=== PATIENT | male | born 1950 | race Caucasian/White ===

== ENCOUNTER 2022-09-06 13:21 | Inpatient (IN) | payer MEDICARE, OTHER, SELFPAY ==
--- NOTE | ~2022-09-06 | XR_ITS ---
EXAMINATION: XR ELBOW, LEFT CLINICAL INFORMATION: Pain left elbow. COMPARISON: None available. TECHNIQUE: Left elbow is imaged in 3 views. FINDINGS: Normal bony mineralization. No acute or healing fracture, dislocation, or arthropathy. No elbow capsular effusion. There is a small oval mineralization adjacent to the medial epicondyle and faint linear mineralization in region of distal triceps. XR/XR elbow LT min 3V IMPRESSION: - No fracture, dislocation, or arthropathy. -Mild calcific tendinosis near medial epicondyle and olecranon.
--- NOTE | ~2022-09-06 | XR_ITS ---
EXAMINATION: XR CHEST CLINICAL INFORMATION: Chest pain COMPARISON: Chest x-ray 03/16/2016 TECHNIQUE: Frontal view of the chest was obtained. FINDINGS: No significant abnormality is noted involving the heart, lungs, mediastinum, bony thorax or soft tissues. XR/XR chest 1V IMPRESSION: Unremarkable chest. No change from 03/16/2016
[2022-09-06 14:26] VITALS: BP 196/107; PULSE 76; RESP 18; TEMP 36.3; O2SAT 99; BMI 27.7
--- NOTE | 2022-09-06 14:26 | ED.GENADULT ---
HPI - General Adult General Chief complaint: General Medical Stated complaint: High Blood Pressure Time Seen by Provider: 09/06/22 15:31 Source: patient Mode of arrival: ambulatory Limitations: no limitations History of Present Illness HPI narrative: patient went to the Urgent Care his blood pressure was 200/120 so they sent him here. Patient states he has had left forearm pain for a few weeks constant with sudden pain with finger numbness. No chest pain or shortness of breath. No history of heart problems. Onset (ago): day(s) Severity: mild Related Data Allergies Allergy/AdvReac Type Severity Reaction Status Date / Time naproxen Allergy Hives Verified 09/06/22 14:26 Review of Systems Review of Systems: Yes all other systems are reviewed and are negative Musculoskeletal: Comments: left arm pain PMFSH Social History Social History (Updated 09/06/22 @ 17:02 by Moisés rBown MD) Alcohol intake: current Alcohol intake frequency: a few times a week Patient Tobacco Use Status: Current everyday Tobacco user Smoked in Last 30 Days: Yes Use of substances other than those prescribed or required for medical reasons: No Advance Directives: No Advance Directives Information Provided: Yes Physical Exam ED Vital Signs: Vital Signs - 24 hr 09/06/22 14:26 09/06/22 15:33 09/06/22 15:37 Temperature 97.4 F 98.5 F Pulse Rate 76 71 130 H Respiratory Rate 18 18 18 Blood Pressure 196/107 H 184/109 H 184/109 H Pulse Oximetry 99 97 99 Oxygen Delivery Method Room Air Room Air Room Air BMI result Body Mass Index 28.2 Const General: healthy appearing Nutritional Appearance: average body habitus Orientation/consciousness: oriented to person and patient oriented x3 Limitations: no limitations HENMT Head: Yes normal to inspection Ears: external ears normal General nose exam: Normal external nose present Mouth: Normal oral and palatal mucosa present and oropharynx normal Throat: Yes posterior oropharynx normal Eyes General: appearance normal, both eyes and all related structures Neck Neck: Yes normal visual inspection Chest Chest palpation & inspection: normal inspection of the chest Resp Other: fine crackles at the bases Cardio Jugular venous distension: no JVD Rate: regular rate Rhythm: regular rhythm Heart sounds: S1 normal heart sound present and S2 normal heart sound present GI Inspection: Yes normal to inspection Palpation (GI): Soft to palpation, nontender and No hepatosplenomegaly present Auscultation: normal bowel sounds General: Yes no CVA tenderness Back/Spine/Pelvis Back: no CVA tenderness Skin General skin exam: no rashes or lesions noted Neuro General: oriented to person and patient oriented x3 Cranial nerves: Yes CN's II-XII intact bilaterally Motor exam (neuro): 5/5 motor strength present throughout Extrem General: Yes normal to inspection Psych Appearance: grossly normal Course Course Course Narrative: RME: 72yo m w/ PMHx HTN (not on medication) sent in from for HTN 200/110 [employer]. Patient went to c/o L elbow pain x 1 mos radiating to L shoulder. denies injury/fall. +assoc L hand/finger numbness. denies PEREZ, neck pain or taking AC. denies CP BP 196/107 in triage. L elbow w/o defomity, nontender, +mild ttp just distal to L elbow. no erythema/warmth. FROM intact EKG, labs, XR ordered Full HPI, ROS and PE to be performed by primary ED provider. Reevaluation(s) Reevaluation #1: patient with NONSTEMI, started on heparin will admit Time: 17:18 Reevaluation #2: I spent 40 minutes of critical care, with interventions, assessments, speaking to patient, consultants, and family. Time: 17:20 Medications Administered Generic Name Dose Route Start Last Admin Trade Name Freq PRN Reason Stop Dose Admin Aspirin 162 mg 09/06/22 15:45 09/06/22 15:48 Aspirin Enteric Coated 81 Mg Tablet.Dr PAGAN 162 mg DAILY SABINO Administration Discontinued Medications Generic Name Dose Route Start Last Admin Trade Name Freq PRN Reason Stop Dose Admin Nitroglycerin 1 inch 09/06/22 15:41 09/06/22 15:48 Nitroglycerin 2 % Oint 1 Gm Packet TRANSDERMA 09/06/22 15:42 1 inch ONCE ONE Administration Medical Decision Making Differential Diagnosis Differential Diagnoses: The differential diagnosis associated with the presentation includes (hypertensive urgency, cardiac ischemia, nonstemi) Admission/Observation Consideration of admission/observation: Escalation of care including admission/observation considered (upon arrival this 72 yo male with BP 200/100 was considered for admission) Consult Healthcare Provider Management of the patient was discussed with: Hospitalist and Tuck Pointer (Dr Torres cardiology) Lab Data 09/06/22 14:37 09/06/22 14:37 Labs: Lab Results 09/06/22 09/06/22 09/06/22 Range/Units 14:37 14:37 14:37 WBC 8.1 (4.8-10.8) X10*3/uL RBC 5.21 (4.60-5.80) X10*6/uL Hgb 16.8 (14.0-18.0) g/dl Hct 51.3 (42.0-52.0) % MCV 98.5 H (80.0-98.0) fL MCH 32.2 (27.0-33.0) pg MCHC 32.7 (31.0-36.0) g/dl RDW 14.1 (11.0-16.0) % Plt Count 199 (160-400) X10*3/uL MPV 11.2 (9.4-12.4) fL Immature Gran % (Auto) 0.2 (0.0-0.4) % Neut % (Auto) 59.0 (45-73) % Lymph % (Auto) 30.4 (20-40) % [place] % (Auto) 8.0 (2-11) % Eos % (Auto) 1.7 (0-4) % Baso % (Auto) 0.7 (0-2) % Lymph # (Auto) 2.5 (1.2-4.9) X10*3/uL [place] # (Auto) 0.7 (0.1-1.2) X10*3/uL Eos # (Auto) 0.1 (0.0-0.4) X10*3/uL Baso # (Auto) 0.1 (0.0-0.2) X10*3/uL Abs Immat Gran (auto) 0.02 (0.00-0.03) X10*3/uL Absolute Neuts (auto) 4.8 (2.0-8.3) x10*3/uL Absolute Nucleated RBC 0.000 (0.0-0.012) X10*3/uL Nucleated RBC % (auto) 0.0 (0.0-0.2) /100WBC PT (10.0-13.1) SEC INR (0.9-1.1) APTT (26.0-36.4) SEC Sodium 143 (135-145) mmol/L Potassium 4.9 (3.3-5.1) mmol/L Chloride 109 H (96-108) mmol/L Carbon Dioxide 26 (22-29) mmol/L Anion Gap 13 (12-20) BUN 9 (9-16) mg/dL Creatinine 0.96 (0.5-1.4) mg/dL Estim Creat Clear Calc 68.2 Estimated GFR > 60 Random Glucose 81 (60-115) mg/dL Calcium 9.5 (8.4-10.2) mg/dL Magnesium 2.0 (1.6-2.6) mg/dL Total Bilirubin 0.6 (0.0-1.0) mg/dL Direct Bilirubin 0.1 (0.0-0.5) mg/dL AST 29 (5-37) U/L ALT 22 (0-40) U/L Alkaline Phosphatase 101 (39-117) U/L Troponin I High Sens 828.8 H* (<3.5-35.0) ng/L Total Protein 7.3 (6.5-8.0) g/dL Albumin 4.2 (3.5-5.0) g/dL 09/06/22 09/06/22 09/06/22 Range/Units 14:37 16:46 16:46 WBC 8.5 (4.8-10.8) X10*3/uL RBC 5.64 (4.60-5.80) X10*6/uL Hgb 18.2 H (14.0-18.0) g/dl Hct 55.1 H (42.0-52.0) % MCV 97.7 (80.0-98.0) fL MCH 32.3 (27.0-33.0) pg MCHC 33.0 (31.0-36.0) g/dl RDW 14.0 (11.0-16.0) % Plt Count 239 (160-400) X10*3/uL MPV 9.9 (9.4-12.4) fL Immature Gran % (Auto) (0.0-0.4) % Neut % (Auto) (45-73) % Lymph % (Auto) (20-40) % [place] % (Auto) (2-11) % Eos % (Auto) (0-4) % Baso % (Auto) (0-2) % Lymph # (Auto) (1.2-4.9) X10*3/uL [place] # (Auto) (0.1-1.2) X10*3/uL Eos # (Auto) (0.0-0.4) X10*3/uL Baso # (Auto) (0.0-0.2) X10*3/uL Abs Immat Gran (auto) (0.00-0.03) X10*3/uL Absolute Neuts (auto) (2.0-8.3) x10*3/uL Absolute Nucleated RBC 0.000 (0.0-0.012) X10*3/uL Nucleated RBC % (auto) 0.0 (0.0-0.2) /100WBC PT 10.2 (10.0-13.1) SEC INR 0.9 (0.9-1.1) APTT 28.9 (26.0-36.4) SEC Sodium (135-145) mmol/L Potassium (3.3-5.1) mmol/L Chloride (96-108) mmol/L Carbon Dioxide (22-29) mmol/L Anion Gap (12-20) BUN (9-16) mg/dL Creatinine (0.5-1.4) mg/dL Estim Creat Clear Calc Estimated GFR Random Glucose (60-115) mg/dL Calcium (8.4-10.2) mg/dL Magnesium (1.6-2.6) mg/dL Total Bilirubin (0.0-1.0) mg/dL Direct Bilirubin (0.0-0.5) mg/dL AST (5-37) U/L ALT (0-40) U/L Alkaline Phosphatase (39-117) U/L Troponin I High Sens 1008.9 H* (<3.5-35.0) ng/L Total Protein (6.5-8.0) g/dL Albumin (3.5-5.0) g/dL Independent Interpretation I performed an independent interpretation of an: EKG (sinus 70, old inferior Qs no st or twave changes) Independent Historian Clinical information obtained from an independent historian. History obtained from or confirmed by: Spouse Discharge Plan Discharge Clinical Impression: NSTEMI (non-ST elevated myocardial infarction), HTN (hypertension), Uncontrolled hypertension Patient Disposition: Admitted As Inpatient
--- NOTE | 2022-09-06 14:28 | ECG_ITS ---
Test Reason : HTN Blood Pressure : / mmHG Vent. Rate : 069 BPM Atrial Rate : 069 BPM P-R Int : 180 ms QRS Dur : 086 ms QT Int : 384 ms P-R-T Axes : 037 -29 017 degrees QTc Int : 411 ms Normal sinus rhythm Possible Anterior infarct , age undetermined Abnormal ECG When compared with ECG of 03-MAY-2016 09:36, No significant change was found Referred By: Winsome Barcenas Electronically Signed By:GALO ROSS MD
[2022-09-06 14:50] LABS: MANUAL DIFF FLAG NO
[2022-09-06 14:53] LABS: Basophils Absolute Auto 0.1 X10*3/uL (0.0-0.2); Basophils Percent Auto 0.7 % (0-2); Eosinophils Absolute Auto 0.1 X10*3/uL (0.0-0.4); Eosinophils Percent Auto 1.7 % (0-4); Hematocrit 51.3 % (42.0-52.0); Hemoglobin 16.8 g/dl (14.0-18.0); Imm Gran Abs Auto 0.02 X10*3/uL (0.00-0.03); Imm Gran Pct Auto 0.2 % (0.0-0.4); Lymphocytes Absolute Auto 2.5 X10*3/uL (1.2-4.9); Lymphocytes Percent Auto 30.4 % (20-40); Mean Corpuscular HGB Conc 32.7 g/dl (31.0-36.0); Mean Corpuscular Hemoglobin 32.2 pg (27.0-33.0); Mean Corpuscular Volume 98.5 fL (80.0-98.0); Mean Platelet Volume 11.2 fL (9.4-12.4); Monocytes Absolute Auto 0.7 X10*3/uL (0.1-1.2); Neutrophils Absolute Auto 4.8 x10*3/uL (2.0-8.3); Platelet Count 199 X10*3/uL (160-400); Red Blood Count 5.21 X10*6/uL (4.60-5.80); Red Cell Distribution Width 14.1 % (11.0-16.0); White Blood Count 8.1 X10*3/uL (4.8-10.8)
[2022-09-06 15:05] LABS: Alanine Aminotransferase 22 U/L (0-40); Albumin Level 4.2 g/dL (3.5-5.0); Alkaline Phosphatase 101 U/L (39-117); Anion Gap 13 (12-20); Aspartate Amino Transferase 29 U/L (5-37); Bilirubin Direct 0.1 mg/dL (0.0-0.5); Bilirubin Total 0.6 mg/dL (0.0-1.0); Blood Urea Nitrogen 9 mg/dL (9-16); Calcium 9.5 mg/dL (8.4-10.2); Carbon Dioxide 26 mmol/L (22-29); Chloride 109 mmol/L (96-108); Creatinine Clr Calc Pharmacy 68.2; Estimated Glomerular Filt Rate > 60; Glucose Random 81 mg/dL (60-115); Potassium 4.9 mmol/L (3.3-5.1); Sodium 143 mmol/L (135-145); Total Protein 7.3 g/dL (6.5-8.0)
[2022-09-06 15:10] LABS: INTERNATIONAL NORM RATIO 0.9 (0.9-1.1); Prothrombin Time 10.2 SEC (10.0-13.1)
[2022-09-06 15:22] LABS: Troponin-I High Sensitivity 828.8 ng/L (<3.5-35.0)
[2022-09-06 15:33] VITALS: BP 184/109; PULSE 71; RESP 18; TEMP 36.9; O2SAT 97
[2022-09-06 15:37] VITALS: BP 184/109; PULSE 130; RESP 18; O2SAT 99
--- NOTE | 2022-09-06 15:41 | PC.NURSE ---
Alert and oriented. Arrived from home accompanied by .Was at urgent care earlier and was told he was having a hypertensive emergency. States that for about a month he has had left lower arm pain that extends up his arm. Denies sob or chest pain . No dizziness or lightheadedness. No edema to bilat lower extremities. NSR on monitor. EKG reviewed by provider. BP elevated provider aware.
[2022-09-06] MEDS: Aspirin Enteric Coated 81 MG TABLET.DR 162 MG PO (15:48)
[2022-09-06] MEDS: Nitroglycerin 2 % Oint 1 GM Packet 1 INCH TRANSDERMA (15:48)
[2022-09-06 16:19] LABS: Partial Thromboplastin Time 28.9 SEC (26.0-36.4)
--- NOTE | 2022-09-06 16:30 | PC.NURSE ---
weight 79.2kg
--- NOTE | 2022-09-06 16:40 | PC.NURSE ---
Heparin gtt pending initial PTT result
--- NOTE | 2022-09-06 16:48 | PM.IMHP ---
History of Present Illness Date of Service: 09/06/22 Attending physician on admission: Moisés Brown Chief Complaint: left forearm pain, uncontrolled hypertension, elevated troponin 72-year-old male with history of possible hypertension( does not have PCP, and does not go to any doctor for 5 years)-went to the urgent care today because of left forearm pain, sharp pain, 7/10 intensity, does not radiates. Found to have elevated blood pressure in the urgent care, subsequently sent to the hospital for further evaluation. Patient was found to have elevated troponin and blood pressure of 210/110 mmhg. Denies any new complaint of chest pain or shortness of breath or abdominal pain or fever or chills or nausea or vomiting or coughor weakness or numbness. Lab imaging reviewed: Patient was found to have a troponin of 828, EKG seems NSR no significant ST changes. XR elbow LT min 3V IMPRESSION: - No fracture, dislocation, or arthropathy. -Mild calcific tendinosis near medial epicondyle and olecranon. cxr -pending Ed discussed the case with cardiology: Started on aspirin, heparin drip, nitroglycerins . blood presure still 180/109 range In addition we added Coreg for blood pressure Review of Systems Review of Systems: As above. [facility] Pertinent family history: mother from intracranial hemorrhage Father had emphysema Social History (Updated 09/06/22 @ 17:02 by Moisés Brown MD) Alcohol intake: current Alcohol intake frequency: a few times a week Patient Tobacco Use Status: Current everyday Tobacco user Meds Allergies Allergy/AdvReac Type Severity Reaction Status Date / Time naproxen Allergy Hives Verified 09/06/22 14:26 Active Medications: Current Medications Aspirin (Aspirin Enteric Coated 81 Mg Tablet.Dr) 162 mg PO DAILY PENDING SALE TO [facility] Last Admin: 09/06/22 15:48 Dose: 162 mg Folic Acid (Folic Acid 1 Mg Tablet) 1 mg PO DAILY PENDING SALE TO [facility] Heparin Sodium (Porcine) (Heparin Sodium,Porcine 5,000 Unit/Ml Vial) 3,100 unit 40 unit/kg (3100 unit) IVPUSH PROTOCOL BOLUS PRN; Protocol PRN Reason: 40 unit/kg - Heparin Protocol Heparin Sodium (Porcine) (Heparin Sodium,Porcine 5,000 Unit/Ml Vial) 6,200 unit 80 unit/kg (6200 unit) IVPUSH PROTOCOL BOLUS PRN; Protocol PRN Reason: 80 unit/kg - Heparin Protocol Heparin Sodium/Sodium Chloride (Heparin Sodium,Porcine/1/2ns) 25,000 unit in 250 mls @ 0 mls/hr IVCONT .Q0M SABINO; Protocol Sodium Chloride (0.9 % Sodium Chloride Flush 3 Ml Syringe) 3 ml IVFLUSH QSHIFT SABINO Thiamine HCl (Thiamine Hcl 100 Mg Tablet) 100 mg PO DAILY SABINO Physical Exam Vital Signs and Narrative: Vital Signs: Last Vital Signs Temp 98.5 F 09/06/22 15:33 Pulse 130 H 09/06/22 15:37 Resp 18 09/06/22 15:37 BP 184/109 H 09/06/22 15:37 Pulse Ox 99 09/06/22 15:37 O2 Del Method Room Air 09/06/22 15:37 BMI result Body Mass Index 27.7 Appearance: Alert.? Oriented X3.? not in distress.? Eyes: Pupils equal, round and reactive to light.? Sclera nonicteric.? ENT: Pharynx normal.? Moist mucous membranes. cvs: rrr, p2i0upndg , no murmur res: clear to auscultation ,no rhonchii or wheezing abd: no rebound or guarding ,nt, bs present. ext pulses present , no cyanosis. neuro: axo3 , nonfocal. Results Labs 09/06/22 14:37 09/06/22 14:37 Labs: Laboratory Results - last 24 hr 09/06/22 09/06/22 09/06/22 14:37 14:37 14:37 MCV 98.5 H MCH 32.2 MCHC 32.7 RDW 14.1 Plt Count 199 MPV 11.2 Immature Gran % (Auto) 0.2 Neut % (Auto) 59.0 Lymph % (Auto) 30.4 [place] % (Auto) 8.0 Eos % (Auto) 1.7 Baso % (Auto) 0.7 Lymph # (Auto) 2.5 [place] # (Auto) 0.7 Eos # (Auto) 0.1 Baso # (Auto) 0.1 Abs Immat Gran (auto) 0.02 Absolute Neuts (auto) 4.8 Absolute Nucleated RBC 0.000 Nucleated RBC % (auto) 0.0 PT INR Anion Gap 13 Estim Creat Clear Calc 68.2 Estimated GFR > 60 Random Glucose 81 Calcium 9.5 Magnesium 2.0 Total Bilirubin 0.6 Direct Bilirubin 0.1 AST 29 ALT 22 Alkaline Phosphatase 101 Troponin I High Sens 828.8 H* Total Protein 7.3 Albumin 4.2 09/06/22 14:37 MCV MCH MCHC RDW Plt Count MPV Immature Gran % (Auto) Neut % (Auto) Lymph % (Auto) [place] % (Auto) Eos % (Auto) Baso % (Auto) Lymph # (Auto) [place] # (Auto) Eos # (Auto) Baso # (Auto) Abs Immat Gran (auto) Absolute Neuts (auto) Absolute Nucleated RBC Nucleated RBC % (auto) PT 10.2 INR 0.9 Anion Gap Estim Creat Clear Calc Estimated GFR Random Glucose Calcium Magnesium Total Bilirubin Direct Bilirubin AST ALT Alkaline Phosphatase Troponin I High Sens Total Protein Albumin ECG Attestation: I personally reviewed and interpreted this ECG as follows: (nsr ,does not seems significant st changes) Imaging Radiologist's Impressions: Impressions Elbow X-Ray 09/06/22 15:00 IMPRESSION: - No fracture, dislocation, or arthropathy. -Mild calcific tendinosis near medial epicondyle and olecranon. Assessment and Plan (1) NSTEMI (non-ST elevated myocardial infarction): Status: Acute (2) Uncontrolled hypertension: Status: Acute (3) Alcohol use: Status: Acute (4) Smoker: Status: Acute (5) Left forearm pain: Status: Acute Plan 72-year-old male with history of hypertension came with arm pain. 1. nstemi: First troponin 800 range, 2nd troponin pending Lipid panel in the morning Echo Started on aspirin, heparin drip, moniter pt/ptt protocol, beta-danny, high-dose statin, nitro patch. Better blood pressure control. Cardio evaluation. 2. Uncontrolled hypertension: Added Coreg, also ED added nitro. 3. Alcohol use: CIWA scale, thiamine folic acid Currently not in withdrawal Addiction consult 4. Current cigar smoker: Added nicotine patch 5. left forearm pain: From 3 weeks, seems more muscular cutaneous type. Added lidocaine patch, Tylenol. DVT prophylaxis: Currently on heparin drip Patient will benefit from 2 midnight stays-considering has NSTEMI may need heparin drip as well as better blood pressure control and cardiac workup for NSTEMI. Time Spent With Patient Time: Total time managing care of this patient today ____ minutes. Quality Stroke Does the patient have a stroke diagnosis?: No VTE Prior VTE?: No VTE Risk Level:: Medical - moderate - high VTE Device Contraindication: N/A - Device Ordered VTE Drug Contraindication: N/A - Med Ordered
[2022-09-06 16:56] LABS: Hemoglobin 18.2 g/dl (14.0-18.0); Mean Corpuscular Hemoglobin 32.3 pg (27.0-33.0); Mean Corpuscular Volume 97.7 fL (80.0-98.0); Mean Platelet Volume 9.9 fL (9.4-12.4); Platelet Count 239 X10*3/uL (160-400); Red Blood Count 5.64 X10*6/uL (4.60-5.80); White Blood Count 8.5 X10*3/uL (4.8-10.8)
[2022-09-06 17:06] LABS: Hematocrit 55.1 % (42.0-52.0)
[2022-09-06 17:13] VITALS: BMI 28.2
[2022-09-06] MEDS: Thiamine HCL 100 MG TABLET PO (17:14)
[2022-09-06] MEDS: Folic Acid 1 MG TABLET PO (17:14)
[2022-09-06] MEDS: carvediloL 12.5 MG TABLET PO ×2 (17:15→20:41)
[2022-09-06] MEDS: Acetaminophen 325 MG TABLET 975 MG PO (17:15)
[2022-09-06 17:16] LABS: Troponin-I High Sensitivity 1008.9 ng/L (<3.5-35.0)
[2022-09-06] MEDS: Lidocaine 4 % Patch ADH..PATCH 1 PATCH TRANSDERMA (17:16)
[2022-09-06] MEDS: 0.9 % Sodium Chloride Flush 3 ML SYRINGE IVFLUSH (17:17)
[2022-09-06] MEDS: Labetalol HCL 100 MG/20 ML VIAL 10 MG IVPUSH (17:28)
[2022-09-06] MEDS: Heparin Sodium,Porcine 5,000 UNIT/ML VIAL 4000 UNIT IVPUSH (17:29)
[2022-09-06] MEDS: Heparin Sodium,Porcine/1/2NS 25,000 UNIT/250 ML IV.SOLN 9.5 UNIT IVCONT (17:36)
--- NOTE | 2022-09-06 18:16 | PHA.MEDREC ---
Pharmacy Consult ? Medication Reconciliation Pharmacy has completed the medication reconciliation.
--- NOTE | 2022-09-06 18:17 | PC.NURSE ---
Report given to accepting unit RN, patient and aware of transsfer
[2022-09-06 18:33] VITALS: BP 136/90; PULSE 89; RESP 18; O2SAT 98
[2022-09-06 19:42] VITALS: BP 131/77; PULSE 71; RESP 20; TEMP 36.9; O2SAT 97
[2022-09-06] MEDS: Atorvastatin Calcium 80 MG TABLET PO (20:41)
--- NOTE | 2022-09-06 23:34 | PC.NURSE ---
Assumed care for patient at 1900, transferred from ED to [facility] at approx 1840. A&Ox3, agitated at times regarding continued questions regarding history/ETOH use, but otherwise pleasant. CIWA scores as ordered. On Heparin gtt as ordered per MAY. Denies chest pain/tightness. Ambulating in room independently without difficulty, steady on feet. NSR with 1st degree HB on human services care specialist. Bed in lowest locked position. Call thornton within reach.
[2022-09-06 23:59] VITALS: BP 133/70; PULSE 60; RESP 20; TEMP 36.6; O2SAT 93
--- NOTE | 2022-09-07 | ECG_ITS ---
Test Reason : nstemi Blood Pressure : / mmHG Vent. Rate : 063 BPM Atrial Rate : 063 BPM P-R Int : 188 ms QRS Dur : 090 ms QT Int : 422 ms P-R-T Axes : 003 000 014 degrees QTc Int : 431 ms Normal sinus rhythm Cannot rule out Inferior infarct , age undetermined Abnormal ECG When compared with ECG of 06-SEP-2022 14:36, No significant change was found Referred By: Moisés Brown Electronically Signed By:GALO ROSS MD
[2022-09-07 00:10] LABS: PTT Heparin Drip 66.6 SEC (53-77.9)
[2022-09-07] MEDS: traMADoL HCL 50 MG TABLET PO (00:28)
[2022-09-07 04:00] VITALS: BP 131/64; PULSE 59; RESP 20; TEMP 36.4; O2SAT 95
[2022-09-07 06:47] LABS: Hemoglobin 14.8 g/dl (14.0-18.0); Mean Corpuscular HGB Conc 32.9 g/dl (31.0-36.0); Mean Corpuscular Hemoglobin 32.5 pg (27.0-33.0); Mean Corpuscular Volume 98.7 fL (80.0-98.0); Mean Platelet Volume 10.5 fL (9.4-12.4); Platelet Count 194 X10*3/uL (160-400); Red Blood Count 4.56 X10*6/uL (4.60-5.80); Red Cell Distribution Width 13.9 % (11.0-16.0); White Blood Count 7.5 X10*3/uL (4.8-10.8)
[2022-09-07 06:52] LABS: Prothrombin Time 11.4 SEC (10.0-13.1)
[2022-09-07 06:54] LABS: PTT Heparin Drip 65.5 SEC (53-77.9)
--- NOTE | 2022-09-07 07:00 | CA_ITS ---
Transthoracic Echocardiogram Patient (Last, First, Middle): Julián AvilaAndrez Gender: Male Date of : 1950 Age: 72 Procedure Date: 09/07/2022 Procedure Type: Transthoracic Echocardiogram Location: [facility] [place] Height: 167.64 cm Weight: 78.93 kg BSA: 1.89 m2 Heart Rate: bpm BP: 131 / 64 mmHg [employer]ing Supervisor: ARCENIO Francis MD: Moisés Brown MD Circus Supervisor: Baljinder Torres MD Symptoms: nstemi Study Quality: Adequate ECG Rhythm: Sinus Conclusions: - 1. Normal LV systolic function with mild LVH with impaired relaxation filling pattern 2. Normal cardiac valvular Dopplers 3. Normal RV systolic pressure 4. Mildly dilated ascending aorta at 3.7 cm 5. No gross pericardial effusion Findings Left Ventricle Normal left ventricular size and systolic function. There is mildly increased left ventricular wall thickness. The visually estimated ejection fraction is between 55-60%. Spectral Doppler is indicative of an impaired relaxation filling pattern. E/E prime ratio is between 8 and 15 consistent with indeterminate filling pressures. Peak GLS is -14.2%, which is reduced. Right Ventricle Normal right ventricular cavity size and systolic function. Atria The left atrium is normal in size. Interatrial shunt cannot be excluded. The right atrium is normal in size. Aortic Valve There is mild calcification of the aortic valve. There is no aortic valve stenosis. There is no aortic valve regurgitation. Mitral Valve There is mild anterior and posterior mitral leaflet thickening. There is trace mitral valve regurgitation. There is no mitral valve stenosis. Pulmonic Valve The pulmonic valve is likely normal. Tricuspid Valve Normal tricuspid valve structure. There is trace tricuspid valve regurgitation. The right ventricular systolic pressure is normal. The right ventricular systolic pressure is 13 mmHg. Normal right atrial pressure. There is no evidence of pulmonary hypertension. Great Vessels The pulmonary artery was not well visualized. There is mild dilatation of the ascending aorta measuring 3.70 cm. Venous The inferior vena cava is normal in size and collapses greater than 50% with inspiration. Pericardium/Pleural There is no evidence of pericardial effusion. Prior Study Comparison No prior study available for comparison. Measurements 2D Linear Measurements IVSd: 1.05 0.6-0.9/0.6-1.0 cm LVIDd: 4.47 3.9-5.3/4.2-5.9 cm LVIDd Index: 2.37 2.4-3.2/2.2-3.1 cm/m2 LVIDs: 2.67 2.0-3.6 cm LVPWd: 1.27 0.7-1.1 cm LA Diam: 3.30 2.7-3.8/3.0-4.0 cm LAIDs Index: 1.75 1.5-2.3 cm/m2 LV Mass: 232.68 67-162/88-224 g LV Mass Index: 123.11 43-95/49-115 g/m2 LVOT Diam: 2.10 3.0+(-)1.3 cm 2D Systolic Function EF 4C: 52.70 >55% EF 2C: 59.40 >55% EF BiP: 56.80 >55% Mitral Valve MV Pk E: 0.86 MV PK A: 0.99 MV Decel Time: 208.00 E/A: 0.90 E'Lateral: 7.94 E'Medial: 8.81 E/E' Med: 9.70 E/E' Lat: 10.80 PHT: 61.00 MVA PHT: 3.61 Decel [place]: 4.12 Aortic Valve AoV Pk Joe: 1.21 AoV Mn Joe: 0.87 AoV VTI: 0.29 AoV Pk Grad: 6.00 Aov Mn Grad: 3.00 FAHAD Cont.VTI: 2.83 LVOT LVOT Pk Joe: 1.08 LVOT Mn Joe: 0.72 LVOT VTI: 0.24 LVOT Pk Grad: 5.00 LVOT Mn Grad: 2.00 LVOT Diam: 2.10 LVOT Area: 3.46 Diastolic Function MV Pk E: 0.86 MV Pk A: 0.99 E/A: 0.90 E'Medial: 8.81 E/E' Med: 9.70 E' Laterial: 7.94 E/E' Lat: 10.80 Right Ventricle TAPSE (mm): 28.00 TVS' Joe: 11.20 Tricuspid Valve TR Pk Joe: 1.62 TR Pk Grad: 10.00 RA Press: 3.00 RVSP: 13.00 Great Vessels Aorta Sinus of Valsalva: 4.00 2.0-3.5 cm Ao Asc: 3.70 2.1-3.4 cm Pulmonary Valve PV Pk Joe: 0.76 Peak PV Grad: 2.00 Updated in Other Vendor System with Status of Final Baljinder Torres MD electronically signed on 09/07/2022 2:40:03 PM with status of Final
[2022-09-07 07:31] LABS: Cholesterol 191 mg/dL; HDL Cholesterol 31 mg/dL; LDL Cholesterol Calculated 135 mg/dl; Triglycerides 125 mg/dL
[2022-09-07 07:32] VITALS: BP 157/84; PULSE 60; RESP 18; TEMP 36.1; O2SAT 98
[2022-09-07] MEDS: Folic Acid 1 MG TABLET PO (08:23)
[2022-09-07] MEDS: Thiamine HCL 100 MG TABLET PO (08:28)
[2022-09-07] MEDS: Omeprazole 20 MG CAPSULE.DR PO (08:31)
[2022-09-07] MEDS: carvediloL 12.5 MG TABLET PO (08:31)
[2022-09-07] MEDS: Aspirin Enteric Coated 81 MG TABLET.DR PO (08:31)
[2022-09-07] MEDS: Multivitamin TABLET 1 TAB PO (08:31)
[2022-09-07] MEDS: Acetaminophen 325 MG TABLET 975 MG PO (08:46)
[2022-09-07] MEDS: Lidocaine 4 % Patch ADH..PATCH 1 PATCH TRANSDERMA (08:47)
[2022-09-07] MEDS: 0.9 % Sodium Chloride Flush 3 ML SYRINGE IVFLUSH (08:48)
[2022-09-07] MEDS: traMADoL HCL 50 MG TABLET 25 MG PO (08:49)
--- NOTE | 2022-09-07 09:03 | MHC.CM.PN ---
CM met with Patient at bedside and addressed IMM with him, providing Patient with the original and placing a copy on the chart. 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 Home/self care is the goal and CM has initiated and will follow for dc planning. Patient has no PCP; CM has provided Patient with a brochure of close by PCP's contact information. Patient is not covid vax'd.
--- NOTE | 2022-09-07 09:36 | P.CONCA_ITS ---
History of Present Illness History of Present Illness Date of Service: 09/07/22 Requesting physician: Moisés Brown Consult reason: other (NSTEMI) Chief complaint: nstemi, uncontrolled htn Narrative: I was consulted to see Julián in cardiology consultation today for elevated troponins and significantly elevated blood pressure. Julián is a 72-year-old healthy turcios who exercises and plays golf on a regular basis has a history of borderline hypertension for many years but has not seen a primary care physician for last 5 years. Recently said he has had increased stress he came to the hospital because of 2-3 week history of left arm discomfort. He describes this left arm discomfort as present most of the time to a minor degree but then it is significantly spikes and then the pain then subsides. He came to the emergency room was noted to have markedly elevated blood pressure with systolic blood pressure over 196 and diastolic blood pressure of 107. He was therefore admitted and treated for the same. However initial troponin was elevated 800. Subsequent troponin at 1000. He has EKG did not show any acute ST T wave changes. His blood pressure is better control his left arm pain has dissipated but I think this is musculoskeletal as he was also given a patch on his left arm. Patient has never any chest pain. Denies any lightheadedness, syncope, neurologic symptoms. Denies any orthopnea, PND, leg edema. Bedside echocardiogram, preliminary is suggestive normal LV systolic function without significant LVH. Review of Systems Constitutional: Constitutional: Reports no additional constitutional complaints Eyes: Eyes: Reports no additional eye complaints Cardiovascular: Cardiovascular: Denies chest pain, Denies lightheadedness, Denies Loss of Consciousness, Denies dyspnea and Reports other ( Left arm discomfort) Respiratory: Respiratory: Reports no additional respiratory complaints and Denies dyspnea Gastrointestinal: Gastrointestinal: Reports no additional gastrointestinal complaints Musculoskeletal: Musculoskeletal: Reports no additional musculoskeletal complaints Integumentary/Breasts: Skin/Breast: Reports system reviewed and no additional complaints, except as docu Neurologic: Reports system reviewed and no additional complaints, except as documented Psychiatric: Psychiatric: Reports no additional psychiatric complaints Endocrine: Endocrine: Reports no additional endocrine complaints Hematologic/Lymphatic: Hematologic/Lymphatic: Reports no additional hematologic/lymphatic complaints Allergic/Immunologic: Allergic/Immunologic: Reports no additional allergic/immunologic complaints PMFSH Social History Social History Household Members: Spouse Housing: House Do you presently have visiting nurse or other home services: No Alcohol intake: current Alcohol intake frequency: a few times a week Patient Tobacco Use Status: Current someday Tobacco user Tobacco use type: Cigar e-Cigarette/Vaping Use: Currently Using service: No Current occupational status: employed Meds Allergies Allergy/AdvReac Type Severity Reaction Status Date / Time naproxen Allergy Hives Verified 09/06/22 14:26 Active Medications: Current Medications Acetaminophen (Acetaminophen 325 Mg Tablet) 975 mg PO TID [facility] Last Admin: 09/07/22 08:46 Dose: 975 mg Aspirin (Aspirin Enteric Coated 81 Mg Tablet.Dr) 81 mg PO DAILY [facility] Last Admin: 09/07/22 08:31 Dose: 81 mg Atorvastatin Calcium (Atorvastatin Calcium 80 Mg Tablet) 80 mg PO BEDTIME SABINO Last Admin: 09/06/22 20:41 Dose: 80 mg Carvedilol (Carvedilol 12.5 Mg Tablet) 12.5 mg PO BID [facility]; Protocol Last Admin: 09/07/22 08:31 Dose: 12.5 mg Folic Acid (Folic Acid 1 Mg Tablet) 1 mg PO DAILY [facility] Last Admin: 09/07/22 08:23 Dose: 1 mg Heparin Sodium (Porcine) (Heparin Sodium,Porcine 5,000 Unit/Ml Vial) 3,200 unit 40 unit/kg (3200 unit) IVPUSH PROTOCOL BOLUS PRN; Protocol PRN Reason: 40 unit/kg - Heparin Protocol Heparin Sodium (Porcine) (Heparin Sodium,Porcine 5,000 Unit/Ml Vial) 6,300 unit 80 unit/kg (6300 unit) IVPUSH PROTOCOL BOLUS PRN; Protocol PRN Reason: 80 unit/kg - Heparin Protocol Heparin Sodium/Sodium Chloride (Heparin Sodium,Porcine/1/2ns) 25,000 unit in 250 mls @ 0 mls/hr IVCONT .Q0M [facility]; Protocol Last Titration: 09/07/22 07:31 Dose: 12 units/kg/hr, 9.5 mls/hr Lidocaine (Lidocaine 4 % Patch Adh..Patch) 1 patch TRANSDERMA DAILY [facility]; Protocol Last Admin: 09/07/22 08:47 Dose: 1 patch Multivitamins/Vitamin C (Multivitamin Tablet) 1 tab PO DAILY [facility] Last Admin: 09/07/22 08:31 Dose: 1 tab Nicotine (Nicotine 21 Mg Patch.Td24) 21 mg TRANSDERMA DAILY [facility] Last Admin: 09/07/22 08:55 Dose: Not Given Omeprazole (Omeprazole 20 Mg Capsule.Dr) 20 mg PO DAILY@0630 [facility] Last Admin: 09/07/22 08:31 Dose: 20 mg Sodium Chloride (0.9 % Sodium Chloride Flush 3 Ml Syringe) 3 ml IVFLUSH QSHIFT [facility] Last Admin: 09/07/22 08:48 Dose: 3 ml Thiamine HCl (Thiamine Hcl 100 Mg Tablet) 100 mg PO DAILY [facility] Last Admin: 09/07/22 08:28 Dose: 100 mg Tramadol HCl (Tramadol Hcl 50 Mg Tablet) 25 mg PO Q4H PRN PRN Reason: Pain, Mild (Pain Scale 1-3) Last Admin: 09/07/22 08:49 Dose: 25 mg Home Medications Medication Instructions Recorded Confirmed Last Taken Type multivitamin 1 tab PO DAILY 09/06/22 09/06/22 09/06/22 History Physical Exam Vital Signs: Vital Signs: Last Vital Signs Temp 97.0 F 09/07/22 07:32 Pulse 60 09/07/22 07:32 Resp 18 09/07/22 07:32 BP 157/84 H 09/07/22 07:32 Pulse Ox 98 09/07/22 07:32 O2 Del Method Room Air 09/07/22 07:32 BMI result Body Mass Index 28.2 Const: General: cooperative, comfortable, no acute distress, alert, awake and Physically active Nutritional Appearance: average body habitus Orientation/consciousness: patient oriented x3 HEENT: Head: Yes normocephalic and Yes atraumatic Neck: Neck: Yes trachea midline, Yes supple and Yes no JVD Resp: Effort & Inspection: normal respiratory effort Auscultation: clear to auscultation bilaterally Cardio: Jugular venous distension: no JVD Palpation: normal PMI Rate: regular rate Rhythm: regular rhythm Heart sounds: S1 normal heart sound present, S2 normal heart sound present, no click, no gallops, no murmurs and no rubs GI: Auscultation: normal bowel sounds Skin: General skin exam: no rashes or lesions noted Neuro: General: patient oriented x3 and no focal motor deficits Extrem: General: Yes no clubbing, cyanosis or edema Objective Labs and Meds 09/07/22 06:01 09/06/22 14:37 Lab results: Laboratory Results - last 24 hr 09/06/22 09/06/22 09/06/22 14:37 14:37 14:37 WBC 8.1 RBC 5.21 Hgb 16.8 Hct 51.3 MCV 98.5 H MCH 32.2 MCHC 32.7 RDW 14.1 Plt Count 199 MPV 11.2 Immature Gran % (Auto) 0.2 Neut % (Auto) 59.0 Lymph % (Auto) 30.4 [place] % (Auto) 8.0 Eos % (Auto) 1.7 Baso % (Auto) 0.7 Lymph # (Auto) 2.5 [place] # (Auto) 0.7 Eos # (Auto) 0.1 Baso # (Auto) 0.1 Abs Immat Gran (auto) 0.02 Absolute Neuts (auto) 4.8 Absolute Nucleated RBC 0.000 Nucleated RBC % (auto) 0.0 PT INR APTT aPTT Heparin Protocol Sodium 143 Potassium 4.9 Chloride 109 H Carbon Dioxide 26 Anion Gap 13 BUN 9 Creatinine 0.96 Estim Creat Clear Calc 68.2 Estimated GFR > 60 Random Glucose 81 Calcium 9.5 Magnesium 2.0 Total Bilirubin 0.6 Direct Bilirubin 0.1 AST 29 ALT 22 Alkaline Phosphatase 101 Troponin I High Sens 828.8 H* Total Protein 7.3 Albumin 4.2 Triglycerides Cholesterol LDL Cholesterol, Calc HDL Cholesterol 09/06/22 09/06/22 09/06/22 14:37 16:46 16:46 WBC 8.5 RBC 5.64 Hgb 18.2 H Hct 55.1 H MCV 97.7 MCH 32.3 MCHC 33.0 RDW 14.0 Plt Count 239 MPV 9.9 Immature Gran % (Auto) Neut % (Auto) Lymph % (Auto) [place] % (Auto) Eos % (Auto) Baso % (Auto) Lymph # (Auto) [place] # (Auto) Eos # (Auto) Baso # (Auto) Abs Immat Gran (auto) Absolute Neuts (auto) Absolute Nucleated RBC 0.000 Nucleated RBC % (auto) 0.0 PT 10.2 INR 0.9 APTT 28.9 aPTT Heparin Protocol Sodium Potassium Chloride Carbon Dioxide Anion Gap BUN Creatinine Estim Creat Clear Calc Estimated GFR Random Glucose Calcium Magnesium Total Bilirubin Direct Bilirubin AST ALT Alkaline Phosphatase Troponin I High Sens 1008.9 H* Total Protein Albumin Triglycerides Cholesterol LDL Cholesterol, Calc HDL Cholesterol 09/06/22 09/07/22 09/07/22 23:39 06:01 06:01 WBC 7.5 RBC 4.56 L Hgb 14.8 Hct 45.0 MCV 98.7 H MCH 32.5 MCHC 32.9 RDW 13.9 Plt Count 194 MPV 10.5 Immature Gran % (Auto) Neut % (Auto) Lymph % (Auto) [place] % (Auto) Eos % (Auto) Baso % (Auto) Lymph # (Auto) [place] # (Auto) Eos # (Auto) Baso # (Auto) Abs Immat Gran (auto) Absolute Neuts (auto) Absolute Nucleated RBC 0.000 Nucleated RBC % (auto) 0.0 PT INR APTT aPTT Heparin Protocol 66.6 Sodium Potassium Chloride Carbon Dioxide Anion Gap BUN Creatinine Estim Creat Clear Calc Estimated GFR Random Glucose Calcium Magnesium Total Bilirubin Direct Bilirubin AST ALT Alkaline Phosphatase Troponin I High Sens Total Protein Albumin Triglycerides 125 Cholesterol 191 LDL Cholesterol, Calc 135 HDL Cholesterol 31 09/07/22 09/07/22 06:01 06:01 WBC RBC Hgb Hct MCV MCH MCHC RDW Plt Count MPV Immature Gran % (Auto) Neut % (Auto) Lymph % (Auto) [place] % (Auto) Eos % (Auto) Baso % (Auto) Lymph # (Auto) [place] # (Auto) Eos # (Auto) Baso # (Auto) Abs Immat Gran (auto) Absolute Neuts (auto) Absolute Nucleated RBC Nucleated RBC % (auto) PT 11.4 INR 1.0 APTT aPTT Heparin Protocol 65.5 Sodium Potassium Chloride Carbon Dioxide Anion Gap BUN Creatinine Estim Creat Clear Calc Estimated GFR Random Glucose Calcium Magnesium Total Bilirubin Direct Bilirubin AST ALT Alkaline Phosphatase Troponin I High Sens Total Protein Albumin Triglycerides Cholesterol LDL Cholesterol, Calc HDL Cholesterol EKG shows normal sinus rhythm with poor R-wave progression without acute ST T wave changes. Imaging Radiologist's impression: Impressions Elbow X-Ray 09/06/22 15:00 IMPRESSION: - No fracture, dislocation, or arthropathy. -Mild calcific tendinosis near medial epicondyle and olecranon. Chest X-Ray 09/06/22 16:10 IMPRESSION: Unremarkable chest. No change from 03/16/2016 Assessment and Plan (1) NSTEMI (non-ST elevated myocardial infarction): Status: Acute Patient present with left arm discomfort uncontrolled blood pressure with elevated troponin suggestive myocardial injury. it is possible that this troponin elevation is related to acute hypertension although it is unusual. He has bedside echocardiogram does not show any major regional wall motion abnormality. He is also possible that he has significant obstructive coronary artery disease. I think the best option is to proceed with cardiac catheterization to evaluate coronary anatomy and guide treatment. In the long run he does require more aggressive blood pressure control. For now continue IV heparin, aspirin and would start him on high-intensity statin therapy. Continue nitropaste as well. Continue carvedilol. (2) Uncontrolled hypertension: Status: Acute Uncontrolled hypertension which needs to be treated. Importance of compliance with follow-up was discussed. He said he understands agrees. Low- salt diet. Stress mitigation strategies needs to be pursued. Continue carvedilol and nitropaste. Will eventually need need to target goal blood pressure less than 130/84. Advised to seek care with a primary care physician. Will follow up in the clinic in 2 weeks time, sooner p.r.n.. Thank you for allowing me to partake in his care Time Spent With Patient Time: Total time managing care of this patient today ____ minutes. Procedures Date of Service Date of Service: 09/07/22
--- NOTE | 2022-09-07 09:36 | P.CDIM_ITS ---
PROVIDER RESPONSE TEXT: To clarify, the appropriate diagnosis supported by the clinical indicators: Other (explain): Nstemi QUERY TEXT: PHYSICIAN'S DOCUMENTATION REQUEST Date of Query: 09/07/2022 08:11 AM EDT Patient Name: Julián Avila Admit Date: 09/06/2022 Dear Moisés Brown, A review of the medical record indicates additional documentation may be needed. Please review below and update the documentation accordingly. Presented to ED with left forearm pain EKG seems NSR no significant ST changes as per H&P 09/06/22 Clinical Indicators: Troponin: 828.8, 1008.9 Started on aspirin, heparin drip, monitor pt/ptt protocol, beta-danny, high-dose statin, nitro patc h Cardiology evaluation pending Please clarify the type of the documented myocardial infarction: NSTEMI due to demand ischemia NSTEMI Type 2 Other (explain)Clinically unable to determine (explain)Thank you, Shannon Layne RN Use of terms such as suspected, likely, concern for, or probable (associated with a specific diagnosi s that is being evaluated, monitored, or treated as if it exists) are acceptable and can be coded in the inpatient se tting, when documented at the time of discharge. Please use your independent medical judgment in providing your response. THIS QUERY IS PART OF THE PERMANENT MEDICAL RECORD
--- NOTE | 2022-09-07 09:40 | MHC.CM.PN ---
Patient has been medically cleared for dc to home today, self care.
[2022-09-07 09:43] LABS: Troponin-I High Sensitivity 511.5 ng/L (<3.5-35.0)
--- NOTE | 2022-09-07 09:45 | PM.DS ---
DS: Providers Provider Date of Service: 09/07/22 Date of admission: 09/06/22 16:42 Date of discharge: 09/07/22 Primary care physician: None Physician Consults: 09/06/22 16:42 Consult to Cardiology Routine Consulting Provider: [facility] Cardiovascular Services Reason for consultation: nstemi,uncontrolled htn Has provider been notified: No 09/06/22 17:08 Addiction Medicine Routine Consulting Provider: Addiction Covering Reason for consultation: alcohol use Has provider been notified: No Attending physician on discharge: Moisés Brown Discharging clinician: Moisés Brown DS: Diagnosis Discharge Diagnosis (1) NSTEMI (non-ST elevated myocardial infarction): Status: Acute (2) Uncontrolled hypertension: Status: Acute DS: Summary Hospital Course Hospital Course: 72-year-old male with history of possible? hypertension( does not have PCP, and does not go to any doctor for 5 years)-went to the urgent care today because of left forearm pain, sharp pain, 7/10 intensity, does not radiates. Found to have elevated blood pressure in the urgent care, subsequently sent to the hospital for further evaluation.? Patient was found to have elevated troponin and blood pressure of 210/110 mmhg. Denies any new complaint of chest pain or shortness of breath or abdominal pain or fever or chills or nausea or vomiting or? coughor? weakness or numbness. Lab imaging reviewed: Patient was found to have a troponin of 828, EKG seems NSR no significant ST changes. XR elbow LT min 3V IMPRESSION: - No fracture, dislocation, or arthropathy. -Mild calcific tendinosis near medial epicondyle and olecranon. cxr -pending Ed discussed the case with cardiology:? Started on aspirin, heparin drip, nitroglycerins . blood presure still 180/109 range In addition we added Coreg for blood pressure. Hospital course: Patient was admitted because of left arm pain and uncontrolled hypertension-found to have NSTEMI: Started on aspirin, statin, IV heparin ,also Coreg added for hypertension. Seen by Cardiology: Patient need to go to [facility] for further cardiac workup including cardiac catheterization and further management of NSTEMI. Hypertension: Was not taking any medication at home, started on Coreg-adjust according to blood pressure . Current smoker: Continue nicotine patch. Alcohol use: Strongly advised to abstain from alcohol, so far no withdrawal symptoms. left forearm pain-seems muscular cutaneous: Added lidocaine, tramadol, consider further workup if pain does not improve. COVID added in anticipation of discharge to [facility]. Above management discussed the patient detail length he understand and in agreement with the above plan, time spent 50 minutes. Time Spent with Patient Time attestation: Total time managing care of this patient today ____ minutes. Discharge coordination time: Greater than 30 minutes Quality: Safe Use of Opioids Does Pt have an Active Cancer Diagnosis on the Problem List?: No Quality: Stroke Does the patient have a stroke diagnosis?: No Physical Exam Vital Signs: Vital Signs: Last Vital Signs Temp 97.0 F 09/07/22 07:32 Pulse 60 09/07/22 07:32 Resp 18 09/07/22 07:32 BP 157/84 H 09/07/22 07:32 Pulse Ox 98 09/07/22 07:32 O2 Del Method Room Air 09/07/22 07:32 BMI result Body Mass Index 28.2 Appearance: Alert.? Oriented X3.? not in distress.? Eyes: Pupils equal, round and reactive to light.? Sclera nonicteric.? ENT: Pharynx normal.? Moist mucous membranes. cvs: rrr, [id number] . res: clear to auscultation ,no rhonchii or wheezing abd: no rebound or guarding ,nt, bs present. ext pulses present , no cyanosis. neuro: axo3 , nonfocal. DS: Data Data Completed and Pending Labs on day of discharge: Laboratory Results - last 24 hr 09/06/22 09/06/22 09/06/22 14:37 14:37 14:37 WBC 8.1 RBC 5.21 Hgb 16.8 Hct 51.3 MCV 98.5 H MCH 32.2 MCHC 32.7 RDW 14.1 Plt Count 199 MPV 11.2 Immature Gran % (Auto) 0.2 Neut % (Auto) 59.0 Lymph % (Auto) 30.4 [place] % (Auto) 8.0 Eos % (Auto) 1.7 Baso % (Auto) 0.7 Lymph # (Auto) 2.5 [place] # (Auto) 0.7 Eos # (Auto) 0.1 Baso # (Auto) 0.1 Abs Immat Gran (auto) 0.02 Absolute Neuts (auto) 4.8 Absolute Nucleated RBC 0.000 Nucleated RBC % (auto) 0.0 PT INR APTT aPTT Heparin Protocol Sodium 143 Potassium 4.9 Chloride 109 H Carbon Dioxide 26 Anion Gap 13 BUN 9 Creatinine 0.96 Estim Creat Clear Calc 68.2 Estimated GFR > 60 Random Glucose 81 Calcium 9.5 Magnesium 2.0 Total Bilirubin 0.6 Direct Bilirubin 0.1 AST 29 ALT 22 Alkaline Phosphatase 101 Troponin I High Sens 828.8 H* Total Protein 7.3 Albumin 4.2 Triglycerides Cholesterol LDL Cholesterol, Calc HDL Cholesterol 09/06/22 09/06/22 09/06/22 14:37 16:46 16:46 WBC 8.5 RBC 5.64 Hgb 18.2 H Hct 55.1 H MCV 97.7 MCH 32.3 MCHC 33.0 RDW 14.0 Plt Count 239 MPV 9.9 Immature Gran % (Auto) Neut % (Auto) Lymph % (Auto) [place] % (Auto) Eos % (Auto) Baso % (Auto) Lymph # (Auto) [place] # (Auto) Eos # (Auto) Baso # (Auto) Abs Immat Gran (auto) Absolute Neuts (auto) Absolute Nucleated RBC 0.000 Nucleated RBC % (auto) 0.0 PT 10.2 INR 0.9 APTT 28.9 aPTT Heparin Protocol Sodium Potassium Chloride Carbon Dioxide Anion Gap BUN Creatinine Estim Creat Clear Calc Estimated GFR Random Glucose Calcium Magnesium Total Bilirubin Direct Bilirubin AST ALT Alkaline Phosphatase Troponin I High Sens 1008.9 H* Total Protein Albumin Triglycerides Cholesterol LDL Cholesterol, Calc HDL Cholesterol 09/06/22 09/07/22 09/07/22 23:39 06:01 06:01 WBC 7.5 RBC 4.56 L Hgb 14.8 Hct 45.0 MCV 98.7 H MCH 32.5 MCHC 32.9 RDW 13.9 Plt Count 194 MPV 10.5 Immature Gran % (Auto) Neut % (Auto) Lymph % (Auto) [place] % (Auto) Eos % (Auto) Baso % (Auto) Lymph # (Auto) [place] # (Auto) Eos # (Auto) Baso # (Auto) Abs Immat Gran (auto) Absolute Neuts (auto) Absolute Nucleated RBC 0.000 Nucleated RBC % (auto) 0.0 PT INR APTT aPTT Heparin Protocol 66.6 Sodium Potassium Chloride Carbon Dioxide Anion Gap BUN Creatinine Estim Creat Clear Calc Estimated GFR Random Glucose Calcium Magnesium Total Bilirubin Direct Bilirubin AST ALT Alkaline Phosphatase Troponin I High Sens Total Protein Albumin Triglycerides 125 Cholesterol 191 LDL Cholesterol, Calc 135 HDL Cholesterol 31 09/07/22 09/07/22 09/07/22 06:01 06:01 08:48 WBC RBC Hgb Hct MCV MCH MCHC RDW Plt Count MPV Immature Gran % (Auto) Neut % (Auto) Lymph % (Auto) [place] % (Auto) Eos % (Auto) Baso % (Auto) Lymph # (Auto) [place] # (Auto) Eos # (Auto) Baso # (Auto) Abs Immat Gran (auto) Absolute Neuts (auto) Absolute Nucleated RBC Nucleated RBC % (auto) PT 11.4 INR 1.0 APTT aPTT Heparin Protocol 65.5 Sodium Potassium Chloride Carbon Dioxide Anion Gap BUN Creatinine Estim Creat Clear Calc Estimated GFR Random Glucose Calcium Magnesium Total Bilirubin Direct Bilirubin AST ALT Alkaline Phosphatase Troponin I High Sens 511.5 H* Total Protein Albumin Triglycerides Cholesterol LDL Cholesterol, Calc HDL Cholesterol Imaging Chest x-ray: Radiologist's impression: ITS Impressions Elbow X-Ray 09/06/22 15:00 IMPRESSION: - No fracture, dislocation, or arthropathy. -Mild calcific tendinosis near medial epicondyle and olecranon. Chest X-Ray 09/06/22 16:10 IMPRESSION: Unremarkable chest. No change from 03/16/2016 Discharge Plan Discharge Anticipated Discharge Date/Time: 09/07/22 09:33 Patient Disposition: Home, Self-Care Discharge Diagnosis: NSTEMI, htn , arm pain Referrals: Physician,None [Primary Care Provider] - 1 Week Discharge Medications: New tramadol 50 mg Tablet 25 mg PO Q4H PRN (Reason: Pain, Mild (Pain Scale 1-3)) Qty: 1 0RF lidocaine [Lidocaine Pain Relief] 4 % Adhesive Patch,Medicated 1 patch transdermal DAILY Qty: 1 0RF Protocol: Apply to: Apply to: affected left arm area atorvastatin 80 mg Tablet 80 mg PO BEDTIME Qty: 1 0RF heparin(porcine) in 0.45% NaCl 25,000 unit/250 mL Parenteral Solution 25,000 unit continuous IV infusion .Q0M Qty: 1 0RF nicotine 21 mg/24 hr Patch 24 Hour 21 mg transdermal DAILY Qty: 1 0RF carvedilol 12.5 mg Tablet 12.5 mg PO BID Qty: 1 0RF Protocol: Hold for SBP/HR < HOLD for SBP < : 90 HOLD for HR < : 60 aspirin 81 mg Tablet,Delayed Release (Dr/Ec) 81 mg PO DAILY Qty: 1 0RF Continued multivitamin Tablet 1 tab PO DAILY Discharge Orders: Discharge Order (Routine); Ordered 09/07/22 Ordered By: Moisés Brown Diet: Advance to usual diet Activity on Discharge: As tolerated Stand Alone Forms: Patient Portal Discharge page Care Plan Goals: Patient was admitted because of left arm pain and uncontrolled hypertension-found to have NSTEMI: Started on aspirin, statin, IV heparin ,also Coreg added for hypertension. Seen by Cardiology: Patient need to go to [facility] for further cardiac workup including cardiac catheterization and further management of NSTEMI. Hypertension: Was not taking any medication at home, started on Coreg-adjust according to blood pressure . Current smoker: Continue nicotine patch. Alcohol use: Strongly advised to abstain from alcohol, so far no withdrawal symptoms. COVID added in anticipation of discharge to [facility]. Health Concerns: As above. Plan of Treatment: As above . Assessment: As above.
--- NOTE | 2022-09-07 10:23 | MHC.CM.PN ---
CORRECTION: Per ROUNDS discussion, Patient is being transferred/dc to [facility] for a Cardiac Catheterization.
[2022-09-07 11:06] LABS: COVID-19 Test Negative (Negative); IDNOW Serial# BCCEAD1C
--- NOTE | 2022-09-07 11:06 | P.EN_ITS ---
Event Note Date of Service: 09/07/22 Event Note: Addiction consult placed for patient Chart reviewed, per CM note, patient to be transferred to [facility] for cardiac cath Consult deferred Time Spent With Patient Time: Total time managing care of this patient today ____ minutes.
[2022-09-07 11:32] VITALS: BP 119/78; PULSE 60; RESP 18; TEMP 36.1; O2SAT 96
== END 2022-09-07 12:00 | disposition short-term general hospital (02) | DRG 282 ==
LOC: HO.ED 17:22 → HO.EDOVER 17:29 → HO.IMC 17:35
PROVIDERS: Physician Assistant; Admitting Provider Internal Medicine; Emergency Provider Emergency Medicine; Visit Provider Internal Medicine
DX: I21.4 Non-ST elevation (NSTEMI) myocardial infarction (principal); I10 Essential (primary) hypertension; F17.290 Nicotine dependence, other tobacco product, uncomplicated; F10.90 Alcohol use, unspecified, uncomplicated; Z71.6 Tobacco abuse counseling; Z20.822 Contact with and (suspected) exposure to COVID-19; Z79.82 Long term (current) use of aspirin; Z79.899 Other long term (current) drug therapy
CPT/HCPCS: 36415; 71045; 73080; 80048; 80061; 80076; 83735; 84484; 85025; 85027; 85610; 85730; 87635; 93005; 93306; 93356; 99285; J1643; Q9957

== ENCOUNTER → 2022-09-29 14:57 | Outpatient (BNVA) | payer MEDICARE, SELFPAY | PROVIDERS: Visit Provider Internal Medicine Cardiovascular Disease | DX: I25.10 Atherosclerotic heart disease of native coronary artery without angina pectoris (principal); I10 Essential (primary) hypertension | CPT/HCPCS: 99212 ==

== ENCOUNTER 2023-01-07 09:32 | Emergency (ER) | payer MEDICARE, SELFPAY ==
--- NOTE | ~2023-01-07 | US_ITS ---
EXAMINATION: US VENOUS ULTRASOUND WITH DOPPLER LOWER EXTREMITY, LEFT CLINICAL INFORMATION: Swallowing COMPARISON: Prior study 2017 TECHNIQUE: Ultrasound of the deep veins is performed from the hip to the calf with compression sonography and color and pulse Doppler assessment. Spectral analysis with color-flow imaging is performed. FINDINGS: There is normal venous compression and respiratory variation and augmented flow. The visualized common femoral vein, superficial femoral vein, profunda femoral vein, popliteal vein, and the trifurcation region shows no evidence of deep venous thrombosis. There is no significant popliteal fossa cyst. Redemonstration of echogenic material and noncompressible greater saphenous vein, proximal and mid calf vein, history of superficial thrombophlebitis. If the patient's symptoms persist, followup ultrasound in 5 days 7 days might be of value to exclude proximal propagation from a non-visualized calf vein. US/US venous duplex LE LT IMPRESSION: * No DVT demonstrated in the left lower extremity. * Redemonstration of echogenic material and noncompressible greater saphenous vein, superficial thrombophlebitis. * If the patient's symptoms persist, followup ultrasound in 5 days 7 days might be of value to exclude proximal propagation from a non-visualized calf vein.
[2023-01-07 10:13] VITALS: BP 149/90; PULSE 56; RESP 17; TEMP 36.1; O2SAT 94; BMI 28.4
[2023-01-07 10:37] LABS: MANUAL DIFF FLAG NO
[2023-01-07 10:38] LABS: Basophils Absolute Auto 0.1 X10*3/uL (0.0-0.2); Basophils Percent Auto 0.8 % (0-2); Eosinophils Absolute Auto 0.4 X10*3/uL (0.0-0.4); Eosinophils Percent Auto 3.8 % (0-4); Hemoglobin 15.5 g/dl (14.0-18.0); Imm Gran Abs Auto 0.05 X10*3/uL (0.00-0.03); Imm Gran Pct Auto 0.5 % (0.0-0.4); Lymphocytes Absolute Auto 2.7 X10*3/uL (1.2-4.9); Mean Corpuscular HGB Conc 33.7 g/dl (31.0-36.0); Mean Corpuscular Hemoglobin 33.4 pg (27.0-33.0); Mean Corpuscular Volume 99.1 fL (80.0-98.0); Mean Platelet Volume 10.2 fL (9.4-12.4); Monocytes Absolute Auto 0.9 X10*3/uL (0.1-1.2); Monocytes Percent Auto 8.6 % (2-11); Neutrophils Absolute Auto 6.6 x10*3/uL (2.0-8.3); Neutrophils Percent Auto 61.3 % (45-73); Platelet Count 183 X10*3/uL (160-400); Red Blood Count 4.64 X10*6/uL (4.60-5.80); Red Cell Distribution Width 14.1 % (11.0-16.0); White Blood Count 10.7 X10*3/uL (4.8-10.8)
--- NOTE | 2023-01-07 10:50 | ED.EXTPRO ---
HPI - Extremity Problem General Chief complaint: Extremity Problem Stated complaint: clot in l lower leg Time Seen by Provider: 01/07/23 10:32 Source: patient and family Mode of arrival: ambulatory Limitations: no limitations History of Present Illness HPI Narrative: Patient is a 72-year-old male presenting to the emergency department with complaint of erythema, tenderness, and swelling to left lower leg since morning. Reports he had a stent placed over the summer, is currently on ASA and Brilinta. reports they returned home from [place] via airplane Monday night. He denies any chest pain, shortness of breath, palpitations. States pain is worse with ambulation and palpation. MD Complaint: extremity pain and extremity swelling Onset (ago): day(s) Pain Consistency: constant Location: left and lower extremity Severity scale (1-10): 6 Quality: aching Radiation: none Relieving factors: rest Exacerbating factors: weight bearing, walking and palpation Associated symptoms: denies other symptoms Context: recent travel Related Data Home Medications Medication Instructions Recorded Confirmed multivitamin 1 tab PO DAILY 09/06/22 09/29/22 Previous Rx's Medication Instructions Recorded aspirin 81 mg tablet,delayed 81 mg PO DAILY #1 tab 09/07/22 release atorvastatin 80 mg tablet 80 mg PO BEDTIME #1 tab 09/07/22 omeprazole 20 mg capsule,delayed 20 mg PO DAILY #30 caps 09/07/22 release carvedilol 25 mg tablet 25 mg PO BID 90 days #180 tabs 10/04/22 losartan 50 mg tablet 50 mg PO DAILY 90 days #90 tabs 10/04/22 ticagrelor 90 mg tablet (Brilinta) 90 mg PO BID #90 tabs 10/04/22 Allergies Allergy/AdvReac Type Severity Reaction Status Date / Time naproxen Allergy Hives Verified 09/06/22 14:26 Review of Systems Review of Systems: As per HPI Yes all other systems are reviewed and are negative Constitutional: Constitutional: Reports as per HPI PMFSH Past Medical History Medical History (Updated 01/07/23 @ 11:34 by Dina Keys NP) CAD (coronary artery disease) Uncontrolled hypertension NSTEMI (non-ST elevated myocardial infarction) Surgical History (Updated 09/29/22 @ 15:22 by Baljinder Torres MD) Stented coronary artery Social History Social History Household Members: Spouse Housing: House Do you presently have visiting nurse or other home services: No Alcohol intake: current Alcohol intake frequency: a few times a week Patient Tobacco Use Status: Current someday Tobacco user Tobacco use type: Cigar e-Cigarette/Vaping Use: Currently Using Advance Directives: No Advance Directives Information Provided: Yes service: No Current occupational status: employed Physical Exam Vital Signs: Vital Signs: Last Vital Signs Temp 96.9 F 01/07/23 10:13 Pulse 56 01/07/23 10:13 Resp 17 01/07/23 10:13 BP 149/90 H 01/07/23 10:13 Pulse Ox 94 01/07/23 10:13 O2 Del Method Room Air 01/07/23 10:13 BMI result Body Mass Index 28.4 Vital signs have been reviewed and appear to be correct. Blood pressure elevated. Heart rate normal. Respiratory rate normal. Temperature normal. Oxygen saturation normal. Const: General: cooperative, healthy appearing and no acute distress Orientation/consciousness: oriented to person, oriented to place, oriented to time and patient oriented x3 Limitations: no limitations HEENT: Head: Yes normocephalic and Yes atraumatic Ears: external ears normal General nose exam: Normal external nose present Face and sinus: Yes face symmetric Mouth: oropharynx normal and moist mucous membranes Throat: Yes uvula midline Eyes: Pupils: Equal, round and reactive pupils present Neck: Neck: Yes normal visual inspection and Yes supple Resp: Effort & Inspection: normal respiratory effort and able to speak in complete sentences Auscultation: clear to auscultation bilaterally Cardio: Rate: regular rate Rhythm: regular rhythm Heart sounds: S1 normal heart sound present and S2 normal heart sound present GI: Palpation (GI): Soft to palpation and nontender Auscultation: normoactive bowel sounds : General: Yes no CVA tenderness Back/Spine/Pelvis: Back: no CVA tenderness Skin: General skin exam: elasticity normal and turgor normal Neuro: General: oriented to person, oriented to place, oriented to time, patient oriented x3, moves all extremities, no focal motor deficits and CN's II-XI intact bilaterally Cranial nerves: Yes Equal, round and reactive pupils present Cognition (Neuro): normal cognition Extrem: General: Yes full ROM and Yes no pedal edema Left lower extremity: lower leg Details: erythema Location: of the mid lower leg Location: medially, tenderness Location: other (over erythema), localized swelling Location: of the mid lower leg, palpable cord and no edema; no ecchymosis and foot Details: vascular exam Details: dorsalis pedis pulse present and posterior tibial pulse present Psych: Mental Status: mental status grossly normal Affect: normal affect Thought process: Normal thought process present Medical Decision Making Medical Decision Making [facility] Narrative: Patient is a 72-year-old male presenting to the emergency department with complaint of erythema, tenderness, and swelling to left lower leg since morning. On exam patient is awake, A+Ox3, VS WNL, afebrile, normal neurological exam without focal deficits, physical exam findings as above. Given reported symptoms and physical exam findings, initial differential includes DVT, vasculitis, cellulitis, thrombophlebitis. Labs notable for no leukocytosis, no anemia, no significant electrolyte abnormalities. Ultrasound notable for no DVT, superficial thrombophlebitis greater saphenous vein. My interpretation is in agreement with the radiologist's interpretation. Results discussed with patient and all questions answered. Advised patient to elevate leg while at rest, use Tylenol for discomfort, can use [id number] compression stockings for support and pain control, apply ice for 10-15 minutes a time several times daily. Patient states he does not have a primary care provider. Discussed with patient and the importance of establishing care with a primary care provider for managing of his medical conditions. Return precautions discussed at bedside. Patient verbalized understanding of and agreement with plan. Differential Diagnosis Differential Diagnoses: The differential diagnosis associated with the presentation includes As per [facility]. Admission/Observation Consideration of admission/observation: Escalation of care including admission/observation considered Lab Data [facility] Lab Attestation statement: I reviewed the patient's lab results. As per MDM. 01/07/23 10:33 01/07/23 10:33 Labs: Lab Results 01/07/23 Range/Units 10:33 WBC 10.7 (4.8-10.8) X10*3/uL RBC 4.64 (4.60-5.80) X10*6/uL Hgb 15.5 (14.0-18.0) g/dl Hct 46.0 (42.0-52.0) % MCV 99.1 H (80.0-98.0) fL MCH 33.4 H (27.0-33.0) pg MCHC 33.7 (31.0-36.0) g/dl RDW 14.1 (11.0-16.0) % Plt Count 183 (160-400) X10*3/uL MPV 10.2 (9.4-12.4) fL Immature Gran % (Auto) 0.5 H (0.0-0.4) % Neut % (Auto) 61.3 (45-73) % Lymph % (Auto) 25.0 (20-40) % Camp % (Auto) 8.6 (2-11) % Eos % (Auto) 3.8 (0-4) % Baso % (Auto) 0.8 (0-2) % Lymph # (Auto) 2.7 (1.2-4.9) X10*3/uL Camp # (Auto) 0.9 (0.1-1.2) X10*3/uL Eos # (Auto) 0.4 (0.0-0.4) X10*3/uL Baso # (Auto) 0.1 (0.0-0.2) X10*3/uL Abs Immat Gran (auto) 0.05 H (0.00-0.03) X10*3/uL Absolute Neuts (auto) 6.6 (2.0-8.3) x10*3/uL Absolute Nucleated RBC 0.000 (0.0-0.012) X10*3/uL Nucleated RBC % (auto) 0.0 (0.0-0.2) /100WBC Sodium 139 (135-145) mmol/L Potassium 4.9 (3.3-5.1) mmol/L Chloride 108 (96-108) mmol/L Carbon Dioxide 22 (22-29) mmol/L Anion Gap 14 (12-20) BUN 12 (9-16) mg/dL Creatinine 1.01 (0.5-1.4) mg/dL Estim Creat Clear Calc 61.3 Estimated GFR > 60 Random Glucose 118 H (60-115) mg/dL Calcium 9.5 (8.4-10.2) mg/dL Total Bilirubin 0.6 (0.0-1.0) mg/dL AST 21 (5-37) U/L ALT 19 (0-40) U/L Alkaline Phosphatase 89 (39-117) U/L Total Protein 6.6 (6.5-8.0) g/dL Albumin 3.9 (3.5-5.0) g/dL Independent Interpretation I performed an independent interpretation of an: Ultrasound Interpretation: No DVT, superficial thrombophlebitis of greater saphenous vein Radiology Impression Discussion of test interpretation with radiology: I have reviewed the radiologist's reading. Radiologist Impression: US/US venous duplex LE LT IMPRESSION: * No DVT demonstrated in the left lower extremity. * Redemonstration of echogenic material and noncompressible greater saphenous vein, superficial thrombophlebitis. * If the patient's symptoms persist, followup ultrasound in 5 days 7 days might be of value to exclude proximal propagation from a non-visualized calf vein. Independent Historian Clinical information obtained from an independent historian. History obtained from or confirmed by: Spouse External Record Review External record reviewed: Inpatient record, Office record and Outpatient record Discharge Plan Discharge Clinical Impression: Superficial thrombophlebitis Qualifiers: Superficial thrombophlebitis-Involved body area: lower extremity Laterality: left Qualified Code(s): I80.02 - Phlebitis and thrombophlebitis of superficial vessels of left lower extremity Patient Disposition: Home, Self-Care Additional Instructions: You are evaluated in the emergency department today for redness, pain, and swelling to your left lower leg. Your ultrasound did not show evidence of a DVT. It did show evidence of superficial thrombophlebitis which is inflammation of a vein in your leg. Please elevate your legs while at rest, apply ice for 10-15 minutes at a time several times daily, do not apply ice directly to your skin. You can take Tylenol for discomfort. You can also wear [id number] compression stockings to decrease your discomfort. If your pain, redness, swelling worsens, return to the emergency department. It is important that you establish care with a primary care provider. You were provided with resources for this today. Please attempt to schedule an appointment with a new primary care provider. Return to the emergency department if you develop chest pain, shortness of breath, or any other concerning symptoms. Prescriptions: No Action carvedilol 25 mg tablet 25 mg PO BID 90 Days Qty: 180 3RF losartan 50 mg tablet 50 mg PO DAILY 90 Days Qty: 90 3RF Brilinta 90 mg tablet 90 mg PO BID Qty: 90 3RF multivitamin Tablet 1 tab PO DAILY atorvastatin 80 mg Tablet 80 mg PO BEDTIME Qty: 1 0RF aspirin 81 mg Tablet,Delayed Release (Dr/Ec) 81 mg PO DAILY Qty: 1 0RF omeprazole 20 mg capsule,delayed release(DR/EC) 20 mg PO DAILY Qty: 30 0RF
[2023-01-07 11:06] LABS: Alanine Aminotransferase 19 U/L (0-40); Albumin Level 3.9 g/dL (3.5-5.0); Alkaline Phosphatase 89 U/L (39-117); Anion Gap 14 (12-20); Aspartate Amino Transferase 21 U/L (5-37); Bilirubin Total 0.6 mg/dL (0.0-1.0); Blood Urea Nitrogen 12 mg/dL (9-16); Calcium 9.5 mg/dL (8.4-10.2); Carbon Dioxide 22 mmol/L (22-29); Chloride 108 mmol/L (96-108); Creatinine Clr Calc Pharmacy 61.3; Estimated Glomerular Filt Rate > 60; Glucose Random 118 mg/dL (60-115); Potassium 4.9 mmol/L (3.3-5.1); Sodium 139 mmol/L (135-145); Total Protein 6.6 g/dL (6.5-8.0)
== END 2023-01-07 11:49 | disposition home or self-care (01) ==
PROVIDERS: Emergency Provider Emergency Medicine
DX: I80.02 Phlebitis and thrombophlebitis of superficial vessels of left lower extremity (principal); M79.89 Other specified soft tissue disorders; I25.10 Atherosclerotic heart disease of native coronary artery without angina pectoris; I10 Essential (primary) hypertension; I25.2 Old myocardial infarction
CPT/HCPCS: 36415; 80053; 85025; 93971; 99282; 99284

== ENCOUNTER 2023-01-18 14:19 | Outpatient (AMB) | payer MEDICARE, SELFPAY ==
--- NOTE | 2023-01-18 14:31 | MHC.OFFVIS ---
Intake Vital Signs 01/18/23 14:32 Height 5 ft 6 in Weight 165 lb 5.547 oz BMI 26.7 BP 128/72 Blood Pressure Location Lt brachial Position Sitting Pulse 62 Intake Visit Reasons: 3 mth f/up Intake Note: 3 month follow-up feeling good [employer] Required: No Allergies naproxen Allergy (Verified 09/06/22 14:26) Hives Medication List - Last Reconciled 01/18/23 by Baljinder Torres MD aspirin 81 mg PO DAILY atorvastatin 80 mg PO BEDTIME carvedilol 25 mg PO BID 90 days losartan 50 mg PO DAILY 90 days multivitamin 1 tab PO DAILY omeprazole 20 mg PO DAILY ticagrelor (Brilinta) 90 mg PO BID HPI HPI Comments History of Present Illness Details Julián comes for follow-up. He was getting ecchymosis and he has stopped taking his anti-platelet agent subsequently developed superficial thrombophlebitis in his left leg. Since then he has restarted taking his dual antiplatelet therapy. His blood pressure is well optimized at this point time he is taking all his medications. He denies any exertional chest pain or left forearm pain. Denies any palpitations, lightheadedness, syncope. No other bleeding issues. No shortness of breath, orthopnea, PND. [facility] Medical History CAD (coronary artery disease) Uncontrolled hypertension NSTEMI (non-ST elevated myocardial infarction) Surgical History Stented coronary artery Social History Household Members: Spouse Housing: House Do you presently have visiting nurse or other home services: No Alcohol intake: current Alcohol intake frequency: a few times a week Patient Tobacco Use Status: Current someday Tobacco user Tobacco use type: Cigar e-Cigarette/Vaping Use: Currently Using service: No Current occupational status: employed Review of Systems Const Denies chills, Denies fatigue, Denies fever(s), Denies frequent falls, Denies weakness, Denies weight gain and Denies weight loss ENT Denies dizziness Card Denies chest pain, Denies leg edema, Denies lightheadedness, Denies palpitations, Denies dyspnea, Denies dyspnea on exertion, Denies orthopnea and Denies other (loss of consciousness) Resp Denies cough, Denies dyspnea and Denies dyspnea on exertion GI Denies hematochezia and Denies change in stool character Musc Denies abnormal gait, Denies muscle weakness, Denies numbness, Denies radiating pain into limb and Denies tingling Neuro Denies abnormal gait, Denies dizziness, Denies frequent falls, Denies numbness, Denies tingling and Denies weakness Endo Denies fatigue and Denies palpitations Physical Exam Vital Signs: Last Vital Signs Pulse 62 01/18/23 14:32 BP 128/72 01/18/23 14:32 BMI result Body Mass Index 26.7 Const General: cooperative, comfortable, no acute distress, well developed, alert, awake and Physically active Nutritional Appearance: average body habitus Orientation/consciousness: patient oriented x3 Limitations: no limitations Neck Neck: Yes trachea midline and Yes no JVD Resp Effort & Inspection: normal respiratory effort Auscultation: clear to auscultation bilaterally Cardio Jugular venous distension: no JVD Palpation: normal PMI Rate: regular rate Rhythm: regular rhythm Heart sounds: S1 normal heart sound present, S2 normal heart sound present, no click, no gallops, no murmurs and no rubs GI Auscultation: normal bowel sounds Skin General skin exam: ecchymosis Neuro General: patient oriented x3 and no focal motor deficits Extrem General: Yes no clubbing, cyanosis or edema Assessment & Plan Assessment & Plan (1) CAD (coronary artery disease): Code(s): I25.10 - Atherosclerotic heart disease of [place] coronary artery without angina pectoris Plan: CAD status post drug-eluting stent for acute coronary syndrome in August. He is strongly recommended to avoid stopping his anti-platelet agents on his own without consultation to reduce risk of stent thrombosis. Importance of this was discussed. Nature of drug-eluting stent was discussed again with him. He should continue uninterrupted anti-platelet therapy for 1 year. Continue high-intensity statin therapy. Advised to follow-up lipid panel in near future. Complete smoking cessation was advised continue maintain activity level as tolerated. Advised to call me with any new symptoms. (2) HTN (hypertension): Code(s): I10 - Essential (primary) hypertension Plan: Hypertension which is currently well optimized. He is currently tolerating his medications. Importance of compliance with medication was discussed continue carvedilol and losartan therapy. Advised to monitor blood pressure at home maintain a log. Goal blood pressure less than 130/84. Low-salt diet was discussed. Follow up in the clinic in 1 year's time, sooner p.r.n.. Thank you for allowing me to partake in his care Coding Level of Care Code Est Pt Level 4 (27964) Diagnoses CAD (coronary artery disease) I25.10 HTN (hypertension) I10
[2023-01-18 14:32] VITALS: BP 128/72; PULSE 62; BMI 26.7
== END 2023-01-18 15:00 | disposition home or self-care (01) ==
PROVIDERS: Visit Provider Internal Medicine Cardiovascular Disease
DX: I25.10 Atherosclerotic heart disease of native coronary artery without angina pectoris (principal); I10 Essential (primary) hypertension
CPT/HCPCS: 99214

== ENCOUNTER → 2023-01-18 14:19 | Outpatient (BNVA) | payer MEDICARE, SELFPAY | PROVIDERS: Visit Provider Internal Medicine Cardiovascular Disease | DX: I25.10 Atherosclerotic heart disease of native coronary artery without angina pectoris (principal); I10 Essential (primary) hypertension | CPT/HCPCS: 99212 ==

== ENCOUNTER 2023-01-31 08:17 | Outpatient (REF) | payer MEDICARE, SELFPAY ==
[2023-01-31 09:34] LABS: Cholesterol 117 mg/dL (<200); HDL Cholesterol 28 mg/dL (>40); LDL Cholesterol Calculated 72 mg/dL (<100); Triglycerides 88 mg/dL (<150)
== END 2023-01-31 08:18 | disposition home or self-care (01) ==
LOC: HO.LAB 08:17
PROVIDERS: Visit Provider Internal Medicine Cardiovascular Disease
DX: I25.10 Atherosclerotic heart disease of native coronary artery without angina pectoris (principal)
CPT/HCPCS: 36415; 80061

== ENCOUNTER 2023-07-28 13:32 | Outpatient (AMB) | payer MEDICARE, SELFPAY ==
[2023-07-28 13:35] VITALS: BP 152/76; PULSE 60; O2SAT 97; BMI 26.6
--- NOTE | 2023-07-28 13:35 | MHC.PC.OV ---
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 Allergies naproxen Allergy (Verified 07/28/23 13:39) Hives Medication List - Last Reconciled 07/28/23 by Hua Franco MD aspirin 81 mg PO DAILY atorvastatin 80 mg PO BEDTIME B-complex with vitamin C 1 tab PO DAILY carvedilol 25 mg PO BID glucosamine sulfate (Glucosamine) 500 mg PO DAILY losartan 50 mg PO DAILY 90 days multivitamin 1 tab PO DAILY salmon oil-omega-3 fatty acids 1,000-210 mg caps PO ticagrelor (Brilinta) 90 mg PO BID Tobacco use date assessed: 07/28/23 Fall risk assessment: No Falls in past year Last assessed Fall Risk: 07/28/23 Dental Screening Dental Screen Date: 07/28/23 Did you have a dental visit in the last 12 months?: No Did you have a dental problem in the last 6 months where you did not have access to dental care?: No 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 Patient follows up with Cardiology seen in December 2022 has been on anti-platelet agent but due to ecchymosis was stop and then developed superficial thrombophlebitis of the left leg. NSTEMI August 2022. Cardiac catheterization done August 2022 severe mid RCA stenosis PCI drug-eluting stent. [facility] Medical History (Updated 07/28/23 @ 14:15 by Hua Franco MD) Smoker Left forearm pain CAD (coronary artery disease) Uncontrolled hypertension NSTEMI (non-ST elevated myocardial infarction) Surgical History Stented coronary artery Social History (Updated 07/28/23 @ 14:04 by Hua Franco MD) Household Members: Spouse Housing: House Do you presently have visiting nurse or other home services: No Alcohol intake: current Alcohol intake frequency: a few times a week Comment: 4x a week4-5 days Patient Tobacco Use Status: Current someday Tobacco user Tobacco use type: Cigar Years Smoked: cigar e-Cigarette/Vaping Use: Currently Using service: No Current occupational status: employed Cognitive needs: No Hearing needs: No Vision needs: No Questionnaire PHQ-9 Over the last 2 weeks, how often have you been bothered by any of the following problems? 1. Little interest or pleasure in doing things: not at all 2. Feeling down, depressed, or hopeless: not at all 3. Trouble falling or staying asleep, or sleeping too much: not at all 4. Feeling tired or having little energy: not at all 5. Poor appetite or overeating: not at all 6. Feeling bad about yourself - or that you are a failure or have let yourself or your family down: not at all 7. Trouble concentrating on things, such as reading the newspaper or watching television: not at all 8. Moving or speaking so slowly that other people could have noticed. Or the opposite - being so fidgety or restless that you have been moving around a lot more than usual: not at all 9. Thoughts that you would be better off or of hurting yourself in some way: not at all Total score: 0 Depression Screening Interpretation: Negative Depression Screening Done: Yes 16210 - PHQ-9 Billing: Yes Source: Developed by Drs. Byron Soares, Sarina Meyers, Alli Espinal and colleagues, with an educational ameya from [employer]. Thrive Questionnaire Date Thrive assessed: 07/28/23 What is your living situation today?: I have a steady place to live Within the past 12 months, did the food you bought not last and you didn't have the money to get more?: Never true Within the past 12 months, did you worry whether your food would run out before you got money to buy more?: Never true THRIVE Score: 0 AUDIT C Alcohol Use Questionnaire (AUDIT-C) 1. How often do you have a drink containing alcohol?: 2-3 times a week 2. How many drinks containing alcohol do you have on a typical day when you are drinking?: 1 or 2 3. How often do you have six or more drinks on one occasion?: Never Total Score: 3 BRIJESH-7 AMB Questionnaire BRIJESH-7 Date BRIJESH - 7 assessed: 07/28/23 Feeling nervous, anxious, or on edge: 0 = Not at all Not being able to stop or control worryin = Not at all Worrying too much about different things: 0 = Not at all Trouble relaxin = Not at all Being so restless that it is hard to sit still: 0 = Not at all Becoming easily annoyed or irritable: 0 = Not at all Feeling afraid as if something awful might happen: 0 = Not at all Total BRIJESH-7 score (0-4 normal; 5-9 mild; 10-14 moderate; 15-21 severe): 0 Source: Developed by Drs. Byron Soares, Sarina Meyers, Alli Espinal and colleagues, with an educational ameya from [employer]. BRIJESH-7 Assessment Billing BRIJESH-7 Assessment Tool: BRIJESH-7 Assessment 73586 Physical exam (Primary Care) Vital Signs: Last Vital Signs Pulse 60 07/28/23 13:35 BP 152/76 H 07/28/23 13:35 Pulse Ox 97 07/28/23 13:35 Oxygen Delivery Method Room Air 07/28/23 13:35 BMI result Body Mass Index 26.6 Tobacco/Smoking Status: Tobacco use Status Tobacco use date assessed 07/28/23 07/28/23 13:46 Patient Tobacco Use Status Current someday Tobacco 07/28/23 13:46 Tobacco use type Cigar 07/28/23 13:46 e-Cigarette/Vaping Use Currently Using 07/28/23 13:46 PHQ-9: PHQ-9 Score PHQ-9: Total score 0 07/28/23 13:46 Depression Screening Interpretation: Negative Thrive Assessment: Date of Thrive Assessment Date Thrive assessed 07/28/23 07/28/23 13:46 Const General: alert; No acute distress Eyes Conjunctivae: conjunctivae normal Resp Auscultation: clear to auscultation bilaterally Cardio Rate: regular rate Rhythm: regular rhythm GI Inspection: Yes normal to inspection Extrem General: Yes normal to inspection and No edema Assessment and Plan Assessment & Plan (1) Tobacco abuse: Code(s): Z72.0 - Tobacco use Plan: Patient is strongly advised to stop smoking! (2) Alcohol use: Code(s): Z78.9 - Other specified health status Plan: Patient advised to abstain from alcohol (3) HTN (hypertension): Code(s): I10 - Essential (primary) hypertension Plan: Continue with blood pressure medication. Decrease salt intake and exercise presently on carvedilol 25 mg twice a day losartan 50 mg once a day (4) CAD (coronary artery disease): Comment: August 2022 drug-eluting stent placement RCA Code(s): I25.10 - Atherosclerotic heart disease of [place] coronary artery without angina pectoris Plan: Control the cholesterol, weight, blood pressure continue with Brilinta 90 mg twice a day and aspirin 81 mg once a day (5) Hypercholesterolemia: Code(s): E78.00 - Pure hypercholesterolemia, unspecified Plan: Avoid fried foods, chicken skin, eggs, butter margarine, pastries and meat. Be it pork or beef they have a lot of cholesterol LDL goal of less than 70 and preferably 55. On atorvastatin 80 mg once a day (6) Right inguinal hernia: Code(s): K40.90 - Unilateral inguinal hernia, without obstruction or gangrene, not specified as recurrent Orders: Orders Complete Blood Count Auto Diff Today I25.10 - Atherosclerotic heart disease of [place] coronary artery without angina pectoris Comprehensive Met. Panel Today I25.10 - Atherosclerotic heart disease of [place] coronary artery without angina pectoris Thyroid Stimulating Hormone Today I25.10 - Atherosclerotic heart disease of [place] coronary artery without angina pectoris Free T4 (Free Thyroxine) Today I25.10 - Atherosclerotic heart disease of [place] coronary artery without angina pectoris Vitamin B12 and Folate Today I25.10 - Atherosclerotic heart disease of [place] coronary artery without angina pectoris Lipid Panel Today E78.00 - Pure hypercholesterolemia, unspecified, I25.10 - Atherosclerotic heart disease of [place] coronary artery without angina pectoris Hemoglobin A1c Today I25.10 - Atherosclerotic heart disease of [place] coronary artery without angina pectoris Referrals General Surgery Referral K40.90 - Unilateral inguinal hernia, without obstruction or gangrene, not specified as recurrent Medications: New tramadol 50 mg PO BEDTIME 7 tabs 0RF I25.10 - Atherosclerotic heart disease of [place] coronary artery without angina pectoris Coding Level of Care Code Est Pt Level 4 (50104) Diagnoses Tobacco abuse Z72.0 Alcohol use Z78.9 HTN (hypertension) I10 CAD (coronary artery disease) I25.10 Hypercholesterolemia E78.00 Right inguinal hernia K40.90 Additional Codes BRIJESH-7 Assessment Billing - BRIJESH-7 Assessment Tool: BRIJESH-7 Assessment 59772 ([id number])
== END 2023-07-28 14:31 | disposition home or self-care (01) ==
PROVIDERS: Visit Provider Internal Medicine
DX: Z72.0 Tobacco use (principal); Z78.9 Other specified health status; I10 Essential (primary) hypertension; I25.10 Atherosclerotic heart disease of native coronary artery without angina pectoris; E78.00 Pure hypercholesterolemia, unspecified; K40.90 Unilateral inguinal hernia, without obstruction or gangrene, not specified as recurrent
CPT/HCPCS: 99214

== ENCOUNTER 2023-08-07 10:22 | Outpatient (REF) | payer MEDICARE, SELFPAY ==
[2023-08-07 10:32] LABS: MANUAL DIFF FLAG NO
[2023-08-07 10:46] LABS: Basophils Absolute Auto 0.1 X10*3/uL (0.0-0.2); Basophils Percent Auto 0.5 % (0-2); Eosinophils Absolute Auto 0.3 X10*3/uL (0.0-0.4); Eosinophils Percent Auto 2.8 % (0-4); Hematocrit 43.7 % (42.0-52.0); Hemoglobin 14.7 g/dl (14.0-18.0); Imm Gran Abs Auto 0.04 X10*3/uL (0.00-0.03); Imm Gran Pct Auto 0.4 % (0.0-0.4); Lymphocytes Absolute Auto 2.6 X10*3/uL (1.2-4.9); Lymphocytes Percent Auto 26.2 % (20-40); Mean Corpuscular HGB Conc 33.6 g/dl (31.0-36.0); Mean Corpuscular Hemoglobin 33.7 pg (27.0-33.0); Mean Corpuscular Volume 100.2 fL (80.0-98.0); Mean Platelet Volume 10.2 fL (9.4-12.4); Monocytes Absolute Auto 0.8 X10*3/uL (0.1-1.2); Monocytes Percent Auto 7.9 % (2-11); Neutrophils Percent Auto 62.2 % (45-73); Platelet Count 209 X10*3/uL (160-400); Red Blood Count 4.36 X10*6/uL (4.60-5.80); Red Cell Distribution Width 14.7 % (11.0-16.0); White Blood Count 9.7 X10*3/uL (4.8-10.8)
[2023-08-07 11:26] LABS: Estimated Average Glucose 103 mg/dL; Hemoglobin A1c % 5.2 % (<6.0)
[2023-08-07 11:41] LABS: Alanine Aminotransferase 28 U/L (0-40); Albumin Level 3.9 g/dL (3.5-5.0); Alkaline Phosphatase 80 U/L (39-117); Anion Gap 15 (12-20); Aspartate Amino Transferase 26 U/L (5-37); Bilirubin Total 0.8 mg/dL (0.0-1.0); Blood Urea Nitrogen 14 mg/dL (9-16); Calcium 9.1 mg/dL (8.4-10.2); Carbon Dioxide 24 mmol/L (22-29); Chloride 107 mmol/L (96-108); Cholesterol 120 mg/dL (<200); Estimated Glomerular Filt Rate > 60; Glucose Random 110 mg/dL (60-115); HDL Cholesterol 28 mg/dL (>40); LDL Cholesterol Calculated 77 mg/dL (<100); Potassium 4.4 mmol/L (3.3-5.1); Sodium 142 mmol/L (135-145); Total Protein 6.4 g/dL (6.5-8.0); Triglycerides 76 mg/dL (<150)
[2023-08-07 11:50] LABS: Folate 12.5 ng/mL (> or = 4.0); Vitamin B12 450 pg/mL (200-900)
[2023-08-07 11:58] LABS: Free T4 (Free Thyroxine) 0.75 ng/dL (0.71-1.85); Thyroid Stimulating Hormone 2.12 uIU/mL (0.32-4.0)
== END 2023-08-07 10:23 | disposition home or self-care (01) ==
LOC: HO.LAB 10:22
PROVIDERS: PCP Internal Medicine; Visit Provider Internal Medicine
DX: K40.90 Unilateral inguinal hernia, without obstruction or gangrene, not specified as recurrent (principal); I25.10 Atherosclerotic heart disease of native coronary artery without angina pectoris; E78.00 Pure hypercholesterolemia, unspecified
CPT/HCPCS: 36415; 80053; 80061; 82607; 82746; 83036; 84439; 84443; 85025; 99202

== ENCOUNTER 2023-08-07 11:16 | Outpatient (AMB) | payer MEDICARE, SELFPAY ==
--- NOTE | 2023-08-07 11:20 | MHC.OFFVIS ---
Vital Signs 08/07/23 11:24 Height 5 ft 6 in Weight 167 lb BMI 27.0 BP 160/88 H Blood Pressure Location Lt brachial Position Sitting Pulse 63 Intake Visit Reasons: Unilateral inguinal hernia Intake Note: Patient referred by PCP Dr. Franco for Unilateral inguinal hernia. Present since last summer. Patient c/o: denies pain or discomfort. Radiology Interventional Physician Required: No Accompanied by: Self / Same As Patient Allergies naproxen Allergy (Verified 08/07/23 11:25) Hives HPI Comments Details: Patient presents with approximate 1 year history of right groin pain and swelling. He had a longstanding coughing illness in last spring and summer which resulted in the hernia he thinks. Patient is otherwise relatively healthy although he has just recently had a private medical doctor. He has tolerating a diet. Having regular bowel habits. Does occasional heavy lifting. Chart was reviewed and patient evaluated. Patient had a coronary stent and the summer of last year for which he is on antiplatelet med patient an aspirin. Dr. Torres is his lockstitcher. [facility] Medical History Smoker Left forearm pain CAD (coronary artery disease) Uncontrolled hypertension NSTEMI (non-ST elevated myocardial infarction) Surgical History Stented coronary artery Social History Household Members: Spouse Housing: House Do you presently have visiting nurse or other home services: No Alcohol intake: current Alcohol intake frequency: a few times a week Comment: 4x a week4-5 days Patient Tobacco Use Status: Current someday Tobacco user Tobacco use type: Cigar Years Smoked: cigar e-Cigarette/Vaping Use: Currently Using service: No Current occupational status: employed Cognitive needs: No Hearing needs: No Vision needs: No Physical Exam Vital Signs: Last Vital Signs Pulse 63 08/07/23 11:24 BP 160/88 H 08/07/23 11:24 BMI result Body Mass Index 27.0 Chest Other: Chest breath sounds bilaterally, HS 1 in 2 GI Other: Patient was examined both supine and standing with Valsalva. Left groin negative. Abdomen is soft and benign. A very large right inguinal hernia. Genitalia within normal limits. Assessment & Plan Assessment & Plan (1) Right inguinal hernia: Code(s): K40.90 - Unilateral inguinal hernia, without obstruction or gangrene, not specified as recurrent Category: Surgical Plan Risks, benefits, alternatives open repair of right inguinal hernia with mesh were reviewed with the patient and included but not limited to bleeding, infection, recurrence, numbness, pain, scarring the patient wishes to proceed. We will have the patient reviewed by his lockstitcher regarding his anti-platelet medicine regarding whether this can be stopped yet or not prior to his surgery. All questions answered. Plan as noted above. Coding Level of Care Code New Pt Level 5 (85009) Diagnoses Right inguinal hernia K40.90
[2023-08-07 11:24] VITALS: BP 160/88; PULSE 63; BMI 27.0
== END 2023-08-07 11:51 | disposition home or self-care (01) ==
PROVIDERS: PCP Internal Medicine; Referring Provider Internal Medicine; Visit Provider Surgery
DX: K40.90 Unilateral inguinal hernia, without obstruction or gangrene, not specified as recurrent (principal)
CPT/HCPCS: 99204

== ENCOUNTER 2023-08-14 09:23 | Outpatient (AMB) | payer MEDICARE, SELFPAY ==
[2023-08-14 09:29] VITALS: BP 130/84; PULSE 58; BMI 26.7
--- NOTE | 2023-08-14 09:29 | MHC.OFFVIS ---
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 Overall he has been doing well. He maintains high level of activity and has no exertional chest pain anymore. No arm discomfort. Takes both his oral anticoagulation therapy. Scheduled to undergo noncardiac surgery on August 30 although which is couple of weeks earlier than his stent anniversary. His LDL is 77 mg/dL. Denies any heart failure symptoms. [facility] Medical History Smoker Left forearm pain CAD (coronary artery disease) Uncontrolled hypertension NSTEMI (non-ST elevated myocardial infarction) Surgical History Stented coronary artery Social History Household Members: Spouse Housing: House Do you presently have visiting nurse or other home services: No Alcohol intake: current Alcohol intake frequency: a few times a week Comment: 4x a week4-5 days Patient Tobacco Use Status: Current someday Tobacco user Tobacco use type: Cigar Years Smoked: cigar e-Cigarette/Vaping Use: Currently Using service: No Current occupational status: employed Cognitive needs: No Hearing needs: No Vision needs: No Review of Systems Const Denies chills, Denies fatigue, Denies fever(s), Denies frequent falls, Denies weakness, Denies weight gain and Denies weight loss ENT Denies dizziness Card Denies chest pain, Denies leg edema, Denies lightheadedness, Denies palpitations, Denies dyspnea, Denies dyspnea on exertion, Denies orthopnea and Denies other (loss of consciousness) Resp Denies cough, Denies dyspnea and Denies dyspnea on exertion GI Denies hematochezia and Denies change in stool character Musc Denies abnormal gait, Denies muscle weakness, Denies numbness, Denies radiating pain into limb and Denies tingling Neuro Denies abnormal gait, Denies dizziness, Denies frequent falls, Denies numbness, Denies tingling and Denies weakness Endo Denies fatigue and Denies palpitations Physical Exam Vital Signs: Last Vital Signs Pulse 58 08/14/23 09:29 BP 130/84 08/14/23 09:29 BMI result Body Mass Index 26.7 Const General: cooperative, comfortable, no acute distress, well developed, alert, awake and Physically active Nutritional Appearance: average body habitus Orientation/consciousness: patient oriented x3 Limitations: no limitations Neck Neck: Yes trachea midline and Yes no JVD Resp Effort & Inspection: normal respiratory effort Auscultation: clear to auscultation bilaterally Cardio Jugular venous distension: no JVD Palpation: normal PMI Rate: regular rate Rhythm: regular rhythm Heart sounds: S1 normal heart sound present, S2 normal heart sound present, no click, no gallops, no murmurs and no rubs GI Auscultation: normal bowel sounds Skin General skin exam: ecchymosis Neuro General: patient oriented x3 and no focal motor deficits Extrem General: Yes no clubbing, cyanosis or edema Office Procedures EKG Details: EKG shows normal sinus rhythm with no acute changes 73703-[id number], Complete Assessment & Plan Assessment & Plan (1) Preoperative cardiovascular examination: Code(s): Z01.810 - Encounter for preprocedural cardiovascular examination Plan: Preoperative cardiovascular exam for noncardiac surgery which is an elective surgery. There is no urgency to it. Patient would like to get surgery done as soon as possible. I would postpone the surgery post 09/09/2023 when his aspirin and Brilinta can be withheld safely. Once the surgery is completed switch to low-dose aspirin therapy for life. Continue all other medications in the perioperative time including statins, carvedilol, losartan. His fish oil can also be withheld prior to surgery. Given his high workload and no symptoms he is currently optimized to undergo surgery with low risk for perioperative cardiovascular morbidity mortality. (2) CAD (coronary artery disease): Comment: August 2022 drug-eluting stent placement RCA Code(s): I25.10 - Atherosclerotic heart disease of [place] coronary artery without angina pectoris Category: Medical Plan: CAD with prior drug-eluting stent to RCA for acute coronary syndrome. Has done well since then. Maintains high level of activity. Continue dual antiplatelet therapy uninterrupted till 09/09/2023. Lifelong aspirin therapy beyond that. Continue aggressive blood pressure control which is currently well optimized advised to monitor blood pressure at home maintain a log. Goal blood pressure less than 130/84. His LDL is not well optimized at this point time. Advise Zetia 10 mg daily. He is agreeable. Follow-up lipid panel in 3 months time. Will follow up in the clinic in 1 year's time, sooner p.r.n.. Thank you for allowing me to partake in his care Orders: Orders Lipid Panel 3 Months I25.10 - Atherosclerotic heart disease of [place] coronary artery without angina pectoris Medications: New ezetimibe (Zetia) 10 mg PO DAILY 30 tabs 5RF Coding Level of Care Code Est Pt Level 4 (67842) Diagnoses Preoperative cardiovascular examination Z01.810 CAD (coronary artery disease) I25.10 CPT Codes EKG - CPT: 65315-[id number], Complete ([id number])
== END 2023-08-14 13:14 | disposition home or self-care (01) ==
PROVIDERS: PCP Internal Medicine; Visit Provider Internal Medicine Cardiovascular Disease
DX: I25.10 Atherosclerotic heart disease of native coronary artery without angina pectoris (principal); Z01.810 Encounter for preprocedural cardiovascular examination
CPT/HCPCS: 93010; 99214

== ENCOUNTER → 2023-08-14 09:23 | Outpatient (BNVA) | payer MEDICARE, SELFPAY | PROVIDERS: PCP Internal Medicine; Visit Provider Internal Medicine Cardiovascular Disease | DX: Z01.810 Encounter for preprocedural cardiovascular examination (principal); I25.10 Atherosclerotic heart disease of native coronary artery without angina pectoris; I10 Essential (primary) hypertension; Z95.5 Presence of coronary angioplasty implant and graft | CPT/HCPCS: 93005; 99212 ==

== ENCOUNTER 2023-09-21 06:06 | Day surgery (SDC) | payer MEDICARE, SELFPAY ==
[2023-09-19 07:54] VITALS: BMI 27.0
--- NOTE | 2023-09-19 12:14 | P.CONAN_ITS ---
Documented by User: Allegra Betts NP 09/19/23 12:19 HPI - Anesthesia Eval Consult details Narrative: 73yo M for Right OPEN Hernia Inguinal Reducible with mesh Follows [facility] Cardiology for CAD s/p stent 08/2022 Optimized per 07/2023 office visit. OK to hold DAPT after 09/09/23. High exercise tolerance without symptoms. PMFSH Active Problems Active Problems: All Active Problems Right inguinal hernia (Acute) Hypercholesterolemia (Acute) Tobacco abuse (Acute) Superficial thrombophlebitis of left leg (Acute) Stented coronary artery (Acute) CAD (coronary artery disease) (Acute) Alcohol use (Acute) HTN (hypertension) (Acute) Past Medical History Medical History Smoker Left forearm pain CAD (coronary artery disease) Uncontrolled hypertension NSTEMI (non-ST elevated myocardial infarction) Surgical History Surgical History Stented coronary artery Social History Social History Household Members: Spouse Housing: House Do you presently have visiting nurse or other home services: No Alcohol intake: current Alcohol intake frequency: 0-2 drinks per day Comment: 4x a week4-5 days Patient Tobacco Use Status: Current someday Tobacco user Tobacco use type: Cigar Years Smoked: cigar e-Cigarette/Vaping Use: Currently Using Use of substances other than those prescribed or required for medical reasons: No Are you DNR?: No Advance Directives: No Advance Directives Information Provided: Yes service: No Current occupational status: employed Cognitive needs: No Hearing needs: No Vision needs: No Meds Allergies Allergy/AdvReac Type Severity Reaction Status Date / Time naproxen Allergy Hives Verified 09/21/23 06:07 Home Medications ?Medication ?Instructions ?Recorded ?Confirmed ?Last Taken ?Type multivitamin 1 tab PO DAILY 09/06/22 09/21/23 09/20/23 History B-complex with vitamin C 1 tab PO DAILY 07/28/23 09/21/23 09/20/23 History glucosamine sulfate 500 mg tablet 500 mg PO DAILY 07/28/23 09/21/23 09/20/23 History (Glucosamine) salmon oil 1,000 mg-omega-3 fatty 1 cap PO DAILY 07/28/23 09/21/23 09/14/23 History acids 210 mg capsule Exam Height,Weight and Vital Signs: Height 5 ft 6 in Weight 75.75 kg Pertinent Lab Results Pertinent Lab Results: Laboratory Tests 08/07/23 10:30 WBC 9.7 Hgb 14.7 Hct 43.7 Plt Count 209 Sodium 142 Potassium 4.4 Chloride 107 Carbon Dioxide 24 BUN 14 Creatinine 0.85 Narrative Narrative: EKG 07/2023 normal sinus rhythm with no acute changes ECHO 2022 Conclusions: - 1. Normal LV systolic function with mild LVH with impaired relaxation filling pattern 2. Normal cardiac valvular Dopplers 3. Normal RV systolic pressure 4. Mildly dilated ascending aorta at 3.7 cm 5. No gross pericardial effusion Assessment and Plan Assessment Anesthesia Assessment: Chart Reviewed Documented by User: Bernard Graham MD 09/21/23 07:23 [facility] Past Medical History Medical History Smoker Left forearm pain CAD (coronary artery disease) Uncontrolled hypertension NSTEMI (non-ST elevated myocardial infarction) Family History Family history of problems with anesthesia: No Surgical History Surgical History Stented coronary artery History of Problems with Anesthesia: No Social History Social History Household Members: Spouse Housing: House Do you presently have visiting nurse or other home services: No Alcohol intake: current Alcohol intake frequency: 0-2 drinks per day Comment: 4x a week4-5 days Patient Tobacco Use Status: Current someday Tobacco user Tobacco use type: Cigar Years Smoked: cigar e-Cigarette/Vaping Use: Currently Using Use of substances other than those prescribed or required for medical reasons: No Are you DNR?: No Advance Directives: No Advance Directives Information Provided: Yes service: No Current occupational status: employed Cognitive needs: No Hearing needs: No Vision needs: No Meds Allergies Allergy/AdvReac Type Severity Reaction Status Date / Time naproxen Allergy Hives Verified 09/21/23 06:07 Home Medications ?Medication ?Instructions ?Recorded ?Confirmed ?Last Taken ?Type multivitamin 1 tab PO DAILY 09/06/22 09/21/23 09/20/23 History B-complex with vitamin C 1 tab PO DAILY 07/28/23 09/21/23 09/20/23 History glucosamine sulfate 500 mg tablet 500 mg PO DAILY 07/28/23 09/21/23 09/20/23 History (Glucosamine) salmon oil 1,000 mg-omega-3 fatty 1 cap PO DAILY 07/28/23 09/21/23 09/14/23 History acids 210 mg capsule Exam Airway Mallampati Class: II TM Dist: >3cm Neck ROM: Full Denture: Upper and Lower Assessment and Plan Assessment Anesthesia Assessment: Anesthesia Plan Discussed Final Anesthetic Review Family History of Problems with Anesthesia: No History of Problems with Anesthesia: No NPO: Yes ASA Class: III Final Preanesthetic Review: No Changes in Pt Med Stat, Meds/Allgs Chart Reviewed, Consent Obtained/Reviewed and Anes Risks/Benef Reviewed Patient Risk: Intermediate Procedure Risk: Low Anesthetic Plan Anesthetic Plan: GA Disposition: Standard PACU
--- NOTE | 2023-09-20 11:25 | MHC.SHP ---
Pre-Procedural Eval Section A - 24 Hr Update-Section A only Date of Service: 09/21/23 Changes since office visit: No Cold of Flu in the past 2 weeks, No New Medical Problems, No Changes in Medication and No Patient answered all questions Section B - Complete if H&P > 30 days Chief Complaint: Unilateral inguinal hernia, without obstruction Allergies: Allergies Allergy/AdvReac Type Severity Reaction Status Date / Time naproxen Allergy Hives Verified 08/07/23 11:25 Plan I have reviewed the history and physical and performed a pertinent physical examination on my patient. No changes have occurred unless specified. Time Spent With Patient Time: Total time managing care of this patient today ____ minutes.
[2023-09-21] VITALS (9 sets, daily range): BP systolic 136–165; BP diastolic 70–89; PULSE 53–63; RESP 14–20; TEMP 36.4–36.9; O2SAT 96–98; BMI 25.8
[2023-09-21] MEDS: Lactated Ringers 1,000 ML 100 ML IVCONT (06:24)
--- NOTE | 2023-09-21 07:27 | PC.NURSE ---
Dr Jaeger bedside to evaluate pt prior to leaving pre op for surgical procedure.
--- NOTE | 2023-09-21 08:13 | W.PM.OPN ---
Operative Note Operative Note Date of Service: 09/21/23 Narrative: Preoperative diagnosis: [] Symptomatic right inguinal hernia Postop diagnosis: [] The same Procedure [] open right inguinal herniorrhaphy with Bard mesh Surgeon: [] Mil Patrol Sergeant: [] Enedina Type of Anesthesia: [] LMA Indication for surgery: [] Very large indirect hernia and moderately sized direct hernia Findings: [] Patient brought to the operating room, placed on operative table in supine position, after an adequate level of general anesthesia was induced, the patient's abdomen and right groin were prepped and draped in usual sterile fashion. A small right para inguinal incision was made and carried down through skin, subcutaneous tissue, and Patrice's fascia. External oblique fibers were opened their direction with care to isolate and preserve the ilioinguinal nerve throughout the procedure. Spermatic cord was identified and retracted from the field. A very large indirect hernia sac was identified, from the cord and reduced. Also moderately sized indirect hernia was demonstrated. An extra-large Bard plug was placed in the indirect defect and was sutured inferiorly to the inguinal ligament, and superiorly to the transversalis fascia using interrupted 0 Ethibond suture. Grasped also covered the inguinal floor. At completion, mesh was in good position with no gaps were defects. Wound was irrigated, secured hemostasis, and closed in the following manner; external oblique fascia was closed using running 2-0 Vicryl suture. Patrice's fascia was reapproximated using interrupted 3-0 Vicryl sutures. Interrupted inverted deep dermal 3-0 Vicryl sutures followed by running subcuticular 4-0 Vicryl sutures were placed. Steri-Strips and sterile dressings were applied. Patient underwent ilioinguinal block as well as local infiltration with 0.5 Marcaine at completion. Sponge, needle, and instrument counts reported correct. Patient tolerated the procedure well and emerged from anesthesia stable condition. EBL minimal. Ipsilateral testicle was intrascrotal at completion.
[2023-09-21] MEDS: fentaNYL citrate/PF 100 MCG/2 ML VIAL 25 MCG IVPUSH ×2 (08:35→08:40)
== END 2023-09-21 09:15 | disposition home or self-care (01) ==
PROVIDERS: PCP Internal Medicine; Visit Provider Surgery
PROC: (CPT 49505; principal; 2023-09-21 07:30)
DX: K40.90 Unilateral inguinal hernia, without obstruction or gangrene, not specified as recurrent (principal); I10 Essential (primary) hypertension; I25.10 Atherosclerotic heart disease of native coronary artery without angina pectoris; Z95.5 Presence of coronary angioplasty implant and graft; I25.2 Old myocardial infarction; Z79.01 Long term (current) use of anticoagulants; Z79.1 Long term (current) use of non-steroidal anti-inflammatories (NSAID); Z79.82 Long term (current) use of aspirin; F17.290 Nicotine dependence, other tobacco product, uncomplicated
CPT/HCPCS: 49505; C1781; J0665; J0690; J1100; J2250; J2405; J2704; J3010

== ENCOUNTER → 2023-09-21 06:06 | Outpatient (BNV) | payer MEDICARE, SELFPAY | PROVIDERS: PCP Internal Medicine; Visit Provider Surgery | DX: K40.90 Unilateral inguinal hernia, without obstruction or gangrene, not specified as recurrent (principal) | CPT/HCPCS: 49505 ==

== ENCOUNTER 2023-10-02 10:22 | Outpatient (AMB) | payer MEDICARE, SELFPAY ==
--- NOTE | 2023-10-02 10:24 | A.OFFVIS_ITS ---
Intake Visit Reasons: S/P RIH w/mesh Intake Note: Patient here s/p RIH w/mesh. Reports incisions healing well. Denies constipation. Patient c/o: pain. Still taking rx pain meds. Would like to get refill. SX: 09-21-2023. Coal Loader Required: No Accompanied by: Self / Same As Patient Allergies naproxen Allergy (Verified 10/02/23 10:25) Hives HPI Comments Details: Patient presents for follow-up status post right inguinal hernia repair. He is doing quite well. He is tolerating his diet. He is having regular bowel habits now. History of early constipation. Increasing his activity level. Minimal incisional discomfort now. [facility] Medical History Smoker Left forearm pain CAD (coronary artery disease) Uncontrolled hypertension NSTEMI (non-ST elevated myocardial infarction) Surgical History Stented coronary artery Social History Household Members: Spouse Housing: House Do you presently have visiting nurse or other home services: No Alcohol intake: current Alcohol intake frequency: 0-2 drinks per day Comment: 4x a week4-5 days Patient Tobacco Use Status: Current someday Tobacco user Tobacco use type: Cigar Years Smoked: cigar e-Cigarette/Vaping Use: Currently Using service: No Current occupational status: employed Cognitive needs: No Hearing needs: No Vision needs: No Physical Exam GI Other: Abdomen is soft incision clean dry and intact healing very well Assessment & Plan Assessment & Plan (1) Status post inguinal hernia repair: Code(s): Z98.890 - Other specified postprocedural states; Z87.19 - Personal history of other diseases of the digestive system Category: Medical Plan Patient has been given local instructions including avoiding strenuous ac tivities next few weeks time and otherwise follow-up p.r.n.. Script for Motrin was also placed. All questions answered. Medications: New ibuprofen 800 mg PO Q8H PRN 30 tabs 0RF pain Coding Level of Care Code Global (28238) Diagnoses Status post inguinal hernia repair Z98.890; Z87.19
== END 2023-10-02 10:36 | disposition home or self-care (01) ==
PROVIDERS: PCP Internal Medicine; Visit Provider Surgery
DX: Z98.890 Other specified postprocedural states (principal); Z87.19 Personal history of other diseases of the digestive system
CPT/HCPCS: 99024

== ENCOUNTER → 2023-10-02 10:22 | Outpatient (BNVA) | payer MEDICARE, SELFPAY | PROVIDERS: PCP Internal Medicine; Visit Provider Surgery | DX: Z09 Encounter for follow-up examination after completed treatment for conditions other than malignant neoplasm (principal); Z87.19 Personal history of other diseases of the digestive system | CPT/HCPCS: 99212 ==

== ENCOUNTER 2023-12-27 07:59 | Outpatient (AMB) | payer MEDICARE, SELFPAY ==
--- NOTE | 2023-12-27 07:59 | A.OFFPC_ITS ---
Intake Visit Reasons: Cough Allergies naproxen Allergy (Verified 12/27/23 08:01) Hives Medication List - Last Reconciled 12/27/23 by Bonnie Cordero PA-C aspirin 81 mg PO DAILY atorvastatin 80 mg PO BEDTIME B-complex with vitamin C 1 tab PO DAILY carvedilol 25 mg PO BID ezetimibe (Zetia) 10 mg PO DAILY glucosamine sulfate (Glucosamine) 500 mg PO DAILY hydrocodone-acetaminophen 5-325 mg 1 tab PO Q4-6H PRN ibuprofen 800 mg PO Q8H PRN losartan 50 mg PO DAILY 90 days multivitamin 1 tab PO DAILY oxycodone 5 mg PO Q8H PRN salmon oil-omega-3 fatty acids 1,000-210 mg 1 cap PO DAILY ticagrelor (Brilinta) 90 mg PO BID tramadol 50 mg PO BEDTIME Tobacco use date assessed: 07/28/23 Fall risk assessment: No Falls in past year Last assessed Fall Risk: 12/27/23 Dental Screening Dental Screen Date: 07/28/23 HPI Cough HPI Details 73-year-old male with past medical histo ry of coronary artery disease, hypertension, hypercholesterolemia last seen by Dr. Franco july 2023 coming in for acute problems via telehealth. Today he tells us he has had a cough for about 1 week which has been slowly improving throughout the week. It initially began with a runny nose and congestion and has progressed to a productive cough with clear phlegm. He does identify sick contacts at home who have similar symptoms. Denies any fevers and has not taken a COVID test. He has no other concerns today. [facility] Medical History Smoker Left forearm pain CAD (coronary artery disease) Uncontrolled hypertension NSTEMI (non-ST elevated myocardial infarction) Surgical History Stented coronary artery Social History Household Members: Spouse Housing: House Do you presently have visiting nurse or other home services: No Alcohol intake: current Alcohol intake frequency: 0-2 drinks per day Comment: 4x a week4-5 days Patient Tobacco Use Status: Current someday Tobacco user Tobacco use type: Cigar Years Smoked: cigar e-Cigarette/Vaping Use: Currently Using service: No Current occupational status: employed Cognitive needs: No Hearing needs: No Vision needs: No Questionnaire Thrive Questionnaire Date Thrive assessed: 12/13/23 I am a: Patient What is your living situation today?: I have a steady place to live Within the past 12 months, did the food you bought not last and you didn't have the money to get more?: Never true Within the past 12 months, did you worry whether your food would run out before you got money to buy more?: Never true Do you have trouble paying for medicines?: No Do you have trouble getting transportation to medical appointments?: No Do you have trouble paying your heating and electricity bill?: No Do you have trouble with day-to-day activities such as bathing, preparing meals, shopping, managing finances, etc.?: No Are you interested in more education?: No Please select the resources that you would like help with: None Currently or been in a relationship where the following occur: No concerns reported THRIVE Score: 0 AUDIT C Alcohol Use Questionnaire (AUDIT-C) 1. How often do you have a drink containing alcohol?: 2-3 times a week 2. How many drinks containing alcohol do you have on a typical day when you are drinking?: 3 or 4 3. How often do you have six or more drinks on one occasion?: Monthly Total Score: 6 BRIJESH-7 AMB Questionnaire BRIJESH-7 Date BRIJESH - 7 assessed: 07/28/23 Feeling nervous, anxious, or on edge: 0 = Not at all Not being able to stop or control worryin = Not at all Worrying too much about different things: 0 = Not at all Trouble relaxin = Not at all Becoming easily annoyed or irritable: 0 = Not at all Feeling afraid as if something awful might happen: 0 = Not at all Source: Developed by Drs. Byron Soares, Sarina Meyers, Alli Espinal and colleagues, with an educational ameya from [employer]. Review of Systems Const Denies body aches, Denies chills, Denies fatigue and Denies fever(s) Eyes Reports no additional complaints ENT Details: Scratchy throat from cough Denies dysphagia, Denies facial pain, Reports nasal congestion, Reports nasal discharge, Denies odynophagia, Denies sinus pain and Denies sore throat Card Denies chest pain and Denies dyspnea Resp Denies change in phlegm color, Reports cough, Denies hemoptysis, Denies excessive phlegm production, Denies pain with cough and Denies dyspnea GI Reports no additional complaints, Denies dysphagia and Denies odynophagia Musc Reports no additional complaints Endo Denies fatigue Physical exam (Primary Care) Tobacco/Smoking Status: Tobacco use Status Tobacco use date assessed 07/28/23 12/27/23 08:01 Patient Tobacco Use Status Current someday Tobacco 12/27/23 08:01 Tobacco use type Cigar 12/27/23 08:01 e-Cigarette/Vaping Use Currently Using 12/27/23 08:01 Thrive Assessment: Date of Thrive Assessment Date Thrive assessed 12/13/23 12/27/23 08:01 Currently or been in a relationship where the following occur: No concerns reported Const Other: Unable to perform physical exam due to telehealth appointment Telehealth Telehealth Telehealth Platform: Telephone Location of provider rendering services: practice address Location of patient: address on file Patient Identification confirmed using: Name, : Yes Telehealth method: voice only Patient verbally consented to treatment: Yes Patient verbally consented to billing insurance company: Yes Patient informed of any privacy concerns related to visit: Yes Coding Level of Care Code Tele Est Pt Level 3 (30165) Diagnoses Cough R05.9 Assessment & Plan Assessment & Plan (1) Cough: Code(s): R05.9 - Cough, unspecified Category: Medical Plan: Patient is 1 week into symptoms and viral testing is not advised as he is out of the window for antiviral medications. His symptoms have been improving throughout the week and denies any fevers chest x-ray is not indicated at this time. Advised patient to continue to monitor symptoms and if they worsen or develops a fever to inform the office and chest x-ray will be sent. Offered cough medication which was declined and advised patient to use [id number] cough medicine that is safe for blood pressure. Follow up as needed for this concern. Advised patient to avoid close contact with the people until his symptoms have resolved. Plan This note was constructed using voice recognition software. While every effort has been made to ensure accuracy and press operator carbon products, still areas may have been included sometimes these areas may affect the content or meeting of the given symptoms. Total time spent caring for the patient today was 30 minutes. This includes time spent before the visit reviewing the chart, time spent during the visit, and time spent after the visit and documentation.
== END 2023-12-27 08:18 | disposition home or self-care (01) ==
LOC: HO.HMCH 07:59
PROVIDERS: PCP Internal Medicine
DX: R05.9 Cough, unspecified (principal)

== ENCOUNTER → 2023-12-27 07:59 | Outpatient (BNVA) | payer MEDICARE, SELFPAY | PROVIDERS: PCP Internal Medicine ==

== ENCOUNTER 2024-08-12 09:17 | Outpatient (AMB) | payer MEDICARE, SELFPAY ==
--- NOTE | 2024-08-12 09:36 | A.OFFVIS_ITS ---
Vital Signs 08/12/24 09:37 Height 5 ft 6 in Weight 169 lb 12.095 oz BMI 27.4 BP 124/74 Blood Pressure Location Lt brachial Position Sitting Pulse 65 Intake Visit Reasons: 1 yr f/up Intake Note: 1 year follow-up with ekg feeling good brillinta was stopped a few months ago Patrol Conductor Required: No Allergies naproxen Allergy (Verified 12/27/23 08:01) Hives Medication List - Last Reconciled 08/12/24 by Baljinder Torres MD aspirin 81 mg PO DAILY atorvastatin 80 mg PO BEDTIME B-complex with vitamin C 1 tab PO DAILY carvedilol 25 mg PO BID ezetimibe (Zetia) 10 mg PO DAILY glucosamine sulfate (Glucosamine) 500 mg PO DAILY losartan 50 mg PO DAILY 90 days multivitamin 1 tab PO DAILY salmon oil-omega-3 fatty acids 1,000-210 mg 1 cap PO DAILY HPI Comments Details: Julián comes for 1 year follow-up. Overall he has been doing well. He said he does get mild discomfort in his calves with walking and thinks that might be claudication although he does not want further workup. Denies any exertional chest pain. Takes all his medications. Underwent hernia surgery last year without issues. Currently only on aspirin therapy and dual antiplatelet therapy he has been discontinued. Smokes cigarettes intermittently. Denies any orthopnea, PND, leg edema. No lightheadedness, syncope. [facility] Medical History Smoker Left forearm pain CAD (coronary artery disease) Uncontrolled hypertension NSTEMI (non-ST elevated myocardial infarction) Surgical History Stented coronary artery Social History Household Members: Spouse Housing: House Do you presently have visiting nurse or other home services: No Alcohol intake: current Alcohol intake frequency: 0-2 drinks per day Comment: 4x a week4-5 days Patient Tobacco Use Status: Current someday Tobacco user Tobacco use type: Cigar Years Smoked: cigar e-Cigarette/Vaping Use: Currently Using service: No Current occupational status: employed Cognitive needs: No Hearing needs: No Vision needs: No Review of Systems Const Denies chills, Denies fatigue, Denies fever(s), Denies frequent falls, Denies weakness, Denies weight gain and Denies weight loss ENT Denies dizziness Card Denies chest pain, Denies leg edema, Denies lightheadedness, Denies palpitations, Denies dyspnea, Denies dyspnea on exertion, Denies orthopnea and Denies other (loss of consciousness) Resp Denies cough, Denies dyspnea and Denies dyspnea on exertion GI Denies hematochezia and Denies change in stool character Musc Denies abnormal gait, Denies muscle weakness, Denies numbness, Denies radiating pain into limb and Denies tingling Neuro Denies abnormal gait, Denies dizziness, Denies frequent falls, Denies numbness, Denies tingling and Denies weakness Endo Denies fatigue and Denies palpitations Physical Exam Vital Signs: Last Vital Signs Pulse 65 08/12/24 09:37 BP 124/74 08/12/24 09:37 BMI result Body Mass Index 27.4 Const General: cooperative, comfortable, no acute distress, well developed, alert, awake and Physically active Nutritional Appearance: average body habitus Orientation/consciousness: patient oriented x3 Limitations: no limitations Neck Neck: Yes trachea midline and Yes no JVD Resp Effort & Inspection: normal respiratory effort Auscultation: clear to auscultation bilaterally Cardio Jugular venous distension: no JVD Palpation: normal PMI Rate: regular rate Rhythm: regular rhythm Heart sounds: S1 normal heart sound present, S2 normal heart sound present, no click, no gallops, no murmurs and no rubs GI Auscultation: normal bowel sounds Skin General skin exam: ecchymosis Neuro General: patient oriented x3 and no focal motor deficits Extrem General: Yes no clubbing, cyanosis or edema Office Procedures EKG Details: EKG shows normal sinus rhythm with normal EKG [id number], Complete Assessment & Plan Assessment & Plan (1) CAD (coronary artery disease): Comment: August 2022 drug-eluting stent placement RCA Code(s): I25.10 - Atherosclerotic heart disease of [place] coronary artery without angina pectoris Category: Medical Plan: CAD with drug-eluting stent to RCA without significant symptoms at current point time. Continue low-dose aspirin therapy. Advised him to follow-up lipid panel in near future on dual therapy with ezetimibe and atorvastatin. Target goal LDL less than 60 mg/dL. Continue aggressive blood pressure management. Encouraged to continue to participate in regular physical activity as tolerated. Smoking cessation was advised. Advise possible workup for peripheral vascular disease, however he wants to defer it at this point time. Advised to call me with worsening symptoms. (2) HTN (hypertension): Code(s): I10 - Essential (primary) hypertension Category: Medical Plan: Hypertension which is currently well optimized advised to monitor blood pressure at home maintain a log. Goal blood pressure less than 130/84. Continue current carvedilol and losartan therapy. Low-salt diet was discussed advised to intermittently monitor blood pressure at home maintain a log. Regular physical activity was recommended. Will follow up in the clinic in 1 year's time, sooner p.r.n.. Thank you for allowing me to partake in his care Coding Level of Care Code Est Pt Level 4 (00856) Complex EM visit Add On G2211 Diagnoses CAD (coronary artery disease) I25.10 HTN (hypertension) I10 CPT Codes EKG - CPT: 55275-[id number], Complete ([id number])
[2024-08-12 09:37] VITALS: BP 124/74; PULSE 65; BMI 27.4
== END 2024-08-12 10:19 | disposition home or self-care (01) ==
PROVIDERS: PCP Internal Medicine; Visit Provider Internal Medicine Cardiovascular Disease
DX: I25.10 Atherosclerotic heart disease of native coronary artery without angina pectoris (principal); I10 Essential (primary) hypertension
CPT/HCPCS: 93010; 99214; G2211

== ENCOUNTER → 2024-08-12 09:17 | Outpatient (BNVA) | payer MEDICARE, SELFPAY | PROVIDERS: PCP Internal Medicine; Visit Provider Internal Medicine Cardiovascular Disease | DX: I25.10 Atherosclerotic heart disease of native coronary artery without angina pectoris (principal); I10 Essential (primary) hypertension | CPT/HCPCS: 93005; 99212 ==

== ENCOUNTER 2024-10-21 09:40 | Outpatient (AMB) | payer MEDICARE, SELFPAY ==
[2024-10-21 09:46] VITALS: BP 160/80; PULSE 59; RESP 18; TEMP 36.2; O2SAT 96; BMI 27.3
--- NOTE | 2024-10-21 09:46 | A.OFFPC_ITS ---
Vital Signs 3 10/21/24 09:46 Height 5 ft 6 in Weight 169 lb BMI 27.3 BP 160/80 H Blood Pressure Location Lt brachial Position Sitting Respiration 18 Pulse 59 Pulse Source Pulse Oximeter Temp 97.1 F Temp Source Temporal Artery Scan Pulse Oximetry (%) 96 Oxygen Delivery Method Room Air Intake Visit Reasons: spot on his left arm Med Asst Required: No Accompanied by: Self / Same As Patient Allergies naproxen Allergy (Verified 10/21/24 09:47) Hives Medication List - Last Reconciled 10/21/24 by Hua Franco MD aspirin 81 mg PO DAILY atorvastatin 80 mg PO BEDTIME B-complex with vitamin C 1 tab PO DAILY carvedilol 25 mg PO BID ezetimibe 10 mg PO DAILY glucosamine sulfate (Glucosamine) 500 mg PO DAILY losartan 50 mg PO DAILY 90 days multivitamin 1 tab PO DAILY salmon oil-omega-3 fatty acids 1,000-210 mg 1 cap PO DAILY Tobacco use date assessed: 10/21/24 Fall risk assessment: No Falls in past year Last assessed Fall Risk: 10/21/24 Dental Screening Dental Screen Date: 10/21/24 Did you have a dental visit in the last 12 months?: No Did you have a dental problem in the last 6 months where you did not have access to dental care?: No Was dental information given to patient?: No HPI spot on his left arm 2 HPI0 Details smokes cigar still. actinic keratosis L arm 1 cm [facility] Medical History Smoker Left forearm pain CAD (coronary artery disease) Uncontrolled hypertension NSTEMI (non-ST elevated myocardial infarction) Surgical History Stented coronary artery Social History Household Members: Spouse Housing: House Do you presently have visiting nurse or other home services: No Alcohol intake: current Alcohol intake frequency: 0-2 drinks per day Comment: 4x a week4-5 days Patient Tobacco Use Status: Current someday Tobacco user Tobacco use type: Cigar Cigarettes Per Day: 1 Years Smoked: cigar e-Cigarette/Vaping Use: Never Used service: No Current occupational status: employed Cognitive needs: No Hearing needs: No Vision needs: No Questionnaire PHQ-9 Over the last 2 weeks, how often have you been bothered by any of the following problems? 1. Little interest or pleasure in doing things: not at all 2. Feeling down, depressed, or hopeless: not at all 3. Trouble falling or staying asleep, or sleeping too much: not at all 4. Feeling tired or having little energy: several days 5. Poor appetite or overeating: not at all 6. Feeling bad about yourself - or that you are a failure or have let yourself or your family down: not at all 7. Trouble concentrating on things, such as reading the newspaper or watching television: not at all 8. Moving or speaking so slowly that other people could have noticed. Or the opposite - being so fidgety or restless that you have been moving around a lot more than usual: not at all 9. Thoughts that you would be better off or of hurting yourself in some way: not at all Total score: 1 Depression Screening Interpretation: Negative Depression Screening Done: Yes 98390 - PHQ-9 Billing: Yes Source: Developed by Drs. Byron Soares, Sarina Meyers, Alli Espinal and colleagues, with an educational ameya from [employer] Thrive Questionnaire Date Thrive assessed: 10/21/24 I am a: Patient What is your living situation today?: I have a steady place to live Within the past 12 months, did the food you bought not last and you didn't have the money to get more?: Never true Within the past 12 months, did you worry whether your food would run out before you got money to buy more?: Never true Do you have trouble paying for medicines?: No Do you have trouble getting transportation to medical appointments?: No Do you have trouble paying your heating and electricity bill?: No Do you have trouble taking care of your child, family member or friend?: No Do you have trouble with day-to-day activities such as bathing, preparing meals, shopping, managing finances, etc.?: No Are you currently unemployed and looking for a job?: Yes Are you interested in more education?: No Please select the resources that you would like help with: None Currently or been in a relationship where the following occur: No concerns reported THRIVE Score: 0 AUDIT C Alcohol Use Questionnaire (AUDIT-C) 1. How often do you have a drink containing alcohol?: 4 or more times a week 2. How many drinks containing alcohol do you have on a typical day when you are drinking?: 3 or 4 3. How often do you have six or more drinks on one occasion?: Less than monthly Total Score: 6 BRIJESH-7 AMB Questionnaire BRIJESH-7 Date BRIJESH - 7 assessed: 10/21/24 Feeling nervous, anxious, or on edge: 0 = Not at all Not being able to stop or control worryin = Not at all Worrying too much about different things: 0 = Not at all Trouble relaxin = Not at all Being so restless that it is hard to sit still: 0 = Not at all Becoming easily annoyed or irritable: 0 = Not at all Feeling afraid as if something awful might happen: 0 = Not at all Total BRIJESH-7 score (0-4 normal; 5-9 mild; 10-14 moderate; 15-21 severe): 0 Source: Developed by Drs. Byron Soares, Sarina Meyers, Alli Espinal and colleagues, with an educational ameya from [employer]. Physical exam (Primary Care) Vital Signs: Last Vital Signs Temp 97.1 F 10/21/24 09:46 Pulse 59 10/21/24 09:46 Resp 18 10/21/24 09:46 BP 160/80 H 10/21/24 09:46 Pulse Ox 96 10/21/24 09:46 Oxygen Delivery Method Room Air 10/21/24 09:46 BMI result Body Mass Index 27.3 Tobacco/Smoking Status: Tobacco use Status Tobacco use date assessed 10/21/24 10/21/24 09:56 Patient Tobacco Use Status Current someday Tobacco 10/21/24 09:56 Tobacco use type Cigar 10/21/24 09:56 e-Cigarette/Vaping Use Never Used 10/21/24 09:56 PHQ-9: PHQ-9 Score PHQ-9: Total score 1 10/21/24 10:04 Depression Screening Interpretation: Negative Thrive Assessment: Date of Thrive Assessment Date Thrive assessed 10/21/24 10/21/24 09:56 Currently or been in a relationship where the following occur: No concerns reported Const General: alert; No acute distress Eyes Conjunctivae: conjunctivae normal Resp Auscultation: clear to auscultation bilaterally Cardio Rate: regular rate Rhythm: regular rhythm GI Inspection: Yes normal to inspection Back/Spine/Pelvis Back/spine/pelvis image: 2 1. 1 cm scaly rash , no redness, non pruritic Extrem General: Yes normal to inspection and No edema Coding Level of Care Code Est Pt Level 4 (92794) Complex EM visit Add On G2211 Diagnoses CAD (coronary artery disease) I25.10 HTN (hypertension) I10 Hypercholesterolemia E78.00 Tobacco abuse Z72.0 Actinic keratoses L57.0 Hip pain, right M25.551 Erectile dysfunction N52.9 Urinary incontinence R32 Additional Codes PHQ-9 - 63453 - PHQ-9 Billing: Yes ([id number]) Assessment & Plan Assessment & Plan (1) CAD (coronary artery disease): Comment: August 2022 drug-eluting stent placement RCA Code(s): I25.10 - Atherosclerotic heart disease of [place] coronary artery without angina pectoris Category: Medical Plan: Control the cholesterol, weight, blood pressure, on aspirin and patient follows up with Cardiology (2) HTN (hypertension): Code(s): I10 - Essential (primary) hypertension Category: Medical Plan: Continue with blood pressure medication. Decrease salt intake and exercise on carvedilol 25 mg twice a day losartan 50 mg once a day (3) Hypercholesterolemia: Code(s): E78.00 - Pure hypercholesterolemia, unspecified Category: Medical Plan: Avoid fried foods, chicken skin, eggs, butter margarine, pastries and meat. Be it pork or beef they have a lot of cholesterol patient needs new blood work LDL goal of 60 on Zetia and atorvastatin (4) Tobacco abuse: Code(s): Z72.0 - Tobacco use Category: Medical Plan: Patient is strongly advised to stop smoking! (5) Actinic keratoses: Comment: left arm Code(s): L57.0 - Actinic keratosis Category: Medical (6) Hip pain, right: Code(s): M25.551 - Pain in right hip Category: Medical (7) Erectile dysfunction: Code(s): N52.9 - Male erectile dysfunction, unspecified Category: Medical (8) Urinary incontinence: Code(s): R32 - Unspecified urinary incontinence Category: Medical Plan History of Present Illness The patient is a 74-year-old male presenting with a cough and concerns regarding sun-damaged skin. The patient has a history of coronary artery disease and hypertension, managed with low-dose aspirin, carvedilol, and losartan. He was last seen by cardiology in July 2023, with a target LDL goal of 60 mg/dL, although his LDL was 77 mg/dL at that time. The patient is on Zetia and atorvastatin for hypercholesterolemia. The patient has a history of alcohol and tobacco abuse, currently smoking cigars occasionally. He has been advised to stop smoking due to its adverse effects on cardiovascular health. The patient reports a persistent skin lesion, described as sun-damaged skin, which has not changed in years. He is considering a referral to dermatology for further evaluation. The patient experiences occasional erectile dysfunction, attributed to his cardiovascular condition and medication use. He is not inclined to take additional medication for this issue. The patient reports urinary incontinence, particularly after consuming large amounts of liquid. He wakes up once or twice at night to urinate and experiences leakage. An ultrasound test was discussed to evaluate potential bladder or prostate issues. The patient reports hip pain, suspected to be osteoarthritis, with consideration for an x-ray to assess the severity. Health Maintenance - Smoking cessation advised due to cardiovascular risks - Fasting blood work ordered for cholesterol management - Referral to dermatology for skin evaluation - X-ray of the right hip ordered to assess osteoarthritis Social History - Substance Use: History of alcohol and tobacco abuse, currently smokes cigars occasionally - Lifestyle: Engages in social activities such as golf, enjoys having a few beers post-game Review of Systems - Respiratory: Reports cough - Dermatological: Reports persistent sun-damaged skin lesion - Genitourinary: Reports urinary incontinence, nocturia once or twice per night - Musculoskeletal: Reports hip pain - Reproductive: Reports occasional erectile dysfunction Physical Exam Results - Labs: LDL cholesterol was 77 mg/dL in July 2023 Plan The patient will undergo fasting blood work to reassess cholesterol levels, with a target LDL goal of 60 mg/dL. He is advised to continue current medications, including Zetia and atorvastatin, and to follow up with cardiology for ongoing management of coronary artery disease. A referral to dermatology has been made for evaluation of the persistent sun- damaged skin lesion. An x-ray of the right hip is ordered to assess the severity of suspected osteoarthritis. The patient is strongly advised to cease smoking to mitigate cardiovascular risks. An ultrasound may be considered to evaluate urinary incontinence and potential bladder or prostate issues. Patient was informed and verbally consented to the use of an ambient scribe for clinic note documentation during this visit. Discussion Notes I discussed with the patient the importance of managing his cholesterol levels, emphasizing the target LDL goal of 60 mg/dL and the need for fasting blood work. We reviewed the potential benefits of dermatological evaluation for his sun- damaged skin and the necessity of an x-ray for his hip pain. I advised him on the risks associated with smoking, particularly concerning cardiovascular health, and discussed the possibility of an ultrasound to investigate urinary incontinence. Patient Instructions - Schedule and complete fasting blood work for cholesterol. - Continue taking prescribed medications: Zetia, atorvastatin, carvedilol, and losartan. - Follow up with cardiology as scheduled. - Attend dermatology appointment for skin evaluation. - Undergo x-ray for right hip assessment. - Strongly consider quitting smoking to improve health. Orders: Orders 2 Complete Blood Count Auto Diff Today E78.00 - Pure hypercholesterolemia, unspecified Comprehensive Met. Panel Today E78.00 - Pure hypercholesterolemia, unspecified Free T4 (Free Thyroxine) Today E78.00 - Pure hypercholesterolemia, unspecified Thyroid Stimulating Hormone Today E78.00 - Pure hypercholesterolemia, unspecified Prostate Specific Antigen Scr Today E78.00 - Pure hypercholesterolemia, unspecified US bladder Today R32 - Unspecified urinary incontinence Vitamin B12 and Folate Today E78.00 - Pure hypercholesterolemia, unspecified Lipid Panel Today E78.00 - Pure hypercholesterolemia, unspecified XR hip RT min 2V Today M25.551 - Pain in right hip Referrals 2 Dermatology Referral L57.0 - Actinic keratosis
== END 2024-10-21 10:18 | disposition home or self-care (01) ==
LOC: HO.HMCH 09:41
PROVIDERS: PCP Internal Medicine; Visit Provider Internal Medicine
DX: I25.10 Atherosclerotic heart disease of native coronary artery without angina pectoris (principal); I10 Essential (primary) hypertension; E78.00 Pure hypercholesterolemia, unspecified; Z72.0 Tobacco use; L57.0 Actinic keratosis; M25.551 Pain in right hip; N52.9 Male erectile dysfunction, unspecified; R32 Unspecified urinary incontinence

== ENCOUNTER → 2024-10-21 09:40 | Outpatient (BNVA) | payer MEDICARE, SELFPAY | PROVIDERS: PCP Internal Medicine; Visit Provider Internal Medicine | DX: I25.10 Atherosclerotic heart disease of native coronary artery without angina pectoris (principal); E78.00 Pure hypercholesterolemia, unspecified; I10 Essential (primary) hypertension; L57.0 Actinic keratosis; M25.551 Pain in right hip; N52.9 Male erectile dysfunction, unspecified; R32 Unspecified urinary incontinence; F17.290 Nicotine dependence, other tobacco product, uncomplicated; R35.1 Nocturia | CPT/HCPCS: 96127; 99212 ==

== ENCOUNTER 2024-11-08 07:51 | Outpatient (REF) | payer MEDICARE, SELFPAY ==
--- NOTE | ~2024-11-08 | XR_ITS ---
EXAMINATION: XR HIP, RIGHT CLINICAL INFORMATION: M25.551 - Pain in right hip COMPARISON: None available. TECHNIQUE: AP and oblique views of the right hip. FINDINGS: No acute cortical disruption or malalignment. Sclerosis along the articular surface of the acetabulum. Slight asymmetric joint space narrowing. No lytic or blastic lesions. No gross soft tissue calcifications. No subcutaneous emphysema. No metallic or radiopaque foreign body. XR/XR hip RT min 2V IMPRESSION: Mild osteoarthrosis/osteoarthritis, right hip. Electronically signed by: William Greene MD 11/08/2024 08:23 AM EDT
[2024-11-08 08:09] LABS: MANUAL DIFF FLAG NO
[2024-11-08 08:37] LABS: Hematocrit 41.8 % (42.0-52.0); Hemoglobin 14.2 g/dl (14.0-18.0); Imm Gran Abs Auto 0.03 X10*3/uL (0.00-0.03); Imm Gran Pct Auto 0.4 % (0.0-0.4); Lymphocytes Absolute Auto 2.4 X10*3/uL (1.2-4.9); Mean Corpuscular HGB Conc 34.0 g/dl (31.0-36.0); Mean Corpuscular Hemoglobin 34.0 pg (27.0-33.0); Mean Corpuscular Volume 100.0 fL (80.0-98.0); NRBC Abs Auto 0.000 X10*3/uL (0.0-0.012); NRBC Pct Auto 0.0 /100WBC (0.0-0.2); Platelet Count 171 X10*3/uL (160-400); Red Blood Count 4.18 X10*6/uL (4.60-5.80); White Blood Count 7.8 X10*3/uL (4.8-10.8)
[2024-11-08 09:09] LABS: Alanine Aminotransferase 25 U/L (0-40); Albumin Level 4.1 g/dL (3.5-5.0); Alkaline Phosphatase 102 U/L (39-117); Anion Gap 13 (12-20); Aspartate Amino Transferase 35 U/L (5-37); Blood Urea Nitrogen 17 mg/dL (9-16); Calcium 8.8 mg/dL (8.4-10.2); Carbon Dioxide 26 mmol/L (22-29); Chloride 107 mmol/L (96-108); Cholesterol 111 mg/dL (<200); Estimated Glomerular Filt Rate > 60; HDL Cholesterol 28 mg/dL (>40); Potassium 5.0 mmol/L (3.3-5.1); Sodium 141 mmol/L (135-145); Total Protein 6.5 g/dL (6.5-8.0); Triglycerides 64 mg/dL (<150)
[2024-11-08 09:42] LABS: Folate 19.1 ng/mL (> or = 4.0); Vitamin B12 366 pg/mL (200-900)
[2024-11-08 09:49] LABS: Free T4 (Free Thyroxine) 0.90 ng/dL (0.71-1.85); Thyroid Stimulating Hormone 2.33 uIU/mL (0.32-4.0)
== END 2024-11-08 07:52 | disposition home or self-care (01) ==
LOC: HO.XRAY 07:51
PROVIDERS: Absent Provider Internal Medicine Cardiovascular Disease; PCP Internal Medicine; Visit Provider Internal Medicine
DX: Z12.5 Encounter for screening for malignant neoplasm of prostate (principal); M25.551 Pain in right hip; E78.00 Pure hypercholesterolemia, unspecified
CPT/HCPCS: 36415; 73502; 80053; 80061; 82607; 82746; 84153; 84439; 84443; 85025

== ENCOUNTER → 2024-11-08 08:10 | Outpatient (BNV) | payer MEDICARE, SELFPAY | PROVIDERS: Absent Provider Internal Medicine Cardiovascular Disease; PCP Internal Medicine; Visit Provider Radiology Diagnostic Radiology | DX: M16.11 Unilateral primary osteoarthritis, right hip (principal) | CPT/HCPCS: 73502 ==